=== PATIENT | female | born 1975 | race Hispanic/Latino ===

== ENCOUNTER 2018-08-15 22:58 | Observation (INO) | payer OTHER ==
[2018-08-16] MEDS ORDERED: FAMOTIDINE 20 MG/2 ML VIAL IV ONE (00:12)
[2018-08-16] MEDS ORDERED: NA CHLORIDE 0.9% 1,000 ML ONE (00:12)
[2018-08-16] MEDS ORDERED: ASPIRIN 81 MG CHEWABLE TABLET ONE (00:12)
[2018-08-16] MEDS ORDERED: ENOXAPARIN 80 MG/0.8 ML SQ ONE (00:12)
[2018-08-16 00:13] LABS: Absolute Monocytes 0.6 K/uL (0.1-1.3); Absolute Neutrophil 6.9 K/uL (1.8-8.0); Basophils % 0.4 % (0-1.3); Eosinophils % 2.5 % (0-4.4); Hematocrit 37.6 % (36.0-45.0); MPV 8.4 fL (7.6-11.3); Monocytes % 4.7 % (3.3-12.3)
[2018-08-16 00:16] LABS: Protime INR 0.92
--- NOTE | 2018-08-16 00:23 | ER ---
Nurse's Notes [facility] Name: Yumiko Reardon Age: 43 yrs Sex: Female : 1975 Arrival Date: 08/15/2018 Time: 23:03 Bed 18 Private MD: Tyron Farr Diagnosis: Chest pain, unspecified;Dyspnea;Essential (primary) hypertension;Hypokalemia Presentation: 08/15 23:15 Presenting complaint: Patient states: patient states: I AM HAVING THIS PAIN AND SOB FOR rv COUPLE OF MONTHS NOW. TODAY IT GOT WORSE. I AM ALSO HAVING NUMBNESS WITH MY HANDS. FEBRUARY WAST MY LAST APPOINTMENT WITH [facility]. Transition of care: patient was not received from another setting of care. Onset of symptoms was August 15, 2018 at 08:00. Risk Assessment: Do you want to hurt yourself or someone else? Patient reports no desire to harm self or others. Initial Sepsis Screen: Does the patient meet any 2 criteria? No. Patient's initial sepsis screen is negative. Does the patient have a suspected source of infection? No. Patient's initial sepsis screen is negative. Care prior to arrival: None. 23:15 Method Of Arrival: Ambulatory rv 23:15 Acuity: ARLEY 3 rv Triage Assessment: 08/16 01:43 General: Appears in no apparent distress. uncomfortable. Respiratory: Reports shortness rv of breath Onset: The symptoms/episode began/occurred. Respiratory: the patient has mild shortness of breath. Historical: - Allergies: 08/15 23:17 No Known Allergies; rv - Home Meds: 23:17 None [Active]; rv - PMHx: 23:17 Thyroid problem; rv - PSHx: 23:17 Tubal ligation; rv - Immunization history:: Adult Immunizations up to date, Flu vaccine is up to date. - Social history:: Smoking status: Patient uses tobacco products, denies chronic smoking, but will smoke occasionally. - Ebola Screening: : Patient negative for fever greater than or equal to 101.5 degrees Fahrenheit, and additional compatible Ebola Virus Disease symptoms Patient denies exposure to infectious person Patient denies travel to an Ebola-affected area in the 21 days before illness onset. - Family history:: not pertinent. Screenin:20 Abuse screen: Denies threats or abuse. Denies injuries from another. Nutritional rv screening: No deficits noted. Tuberculosis screening: No symptoms or risk factors identified. Fall Risk None identified. Assessment: 23:19 General: Appears in no apparent distress. comfortable, Behavior is calm, cooperative. rv Pain: Complains of pain in chest Pain does not radiate. Neuro: Level of Consciousness is awake, alert, obeys commands, Oriented to person, place, time, situation. Cardiovascular: Rhythm is regular. Respiratory: Airway is patent Respiratory effort is even, Breath sounds are clear bilaterally. GI: No signs and/or symptoms were reported involving the gastrointestinal system. : No signs and/or symptoms were reported regarding the genitourinary system. EENT: No signs and/or symptoms were reported regarding the EENT system. Derm: Skin is intact. Musculoskeletal: No signs and/or symptoms reported regarding the musculoskeletal system. Vital Signs: 23:18 Weight 86.18 kg (R); Height 4 ft. 11 in. (149.86 cm) (R); rv 23:21 BP 144 / 86; Pulse 67 MON; Resp 22 S; Pulse Ox 100% on R/A; rv 23:23 Temp 99.5(O); rv 08/16 00:00 BP 115 / 80; Pulse 66; Resp 17 S; Pulse Ox 97% on R/A; rv 00:30 BP 129 / 87; Pulse 66; Resp 19 S; Pulse Ox 99% on R/A; rv 01:00 BP 134 / 83; Pulse 71; Resp 18 S; Pulse Ox 100% on R/A; rv 01:15 BP 142 / 90; Pulse 64; Resp 18 S; Pulse Ox 99% on R/A; rv 08/15 23:18 Body Mass Index 38.37 (86.18 kg, 149.86 cm) rv ED Course: 08/15 23:03 Patient arrived in ED. es 23:04 Tyron Farr DO is Private Physician. es 23:16 Triage completed. rv 23:42 Dominik Liao MD is Attending Physician. lani 23:50 Inserted saline lock: 20 gauge in right forearm, using aseptic technique. Blood rv collected. 23:50 Initial lab(s) drawn, by al, sent to lab. First set of blood cultures drawn by al. rv 08/16 00:10 Second set of blood cultures drawn by me. rv 00:20 Nan Saleem MD is Hospitalizing Provider. lani 01:31 X-ray completed. Portable x-ray completed in exam room. Patient tolerated procedure kw well. 01:42 No provider procedures requiring assistance completed. Patient admitted, IV remains in rv place. intact. 01:42 Arm band placed on right wrist. rv 01:44 Patient has correct armband on for positive identification. Bed in low position. Call rv light in reach. Side rails up X 1. Adult w/ patient. Pulse ox on. NIBP on. Administered Medications: 00:05 Drug: Aspirin Chewable Tablet 162 mg Route: PO; rv 00:53 Follow up: Response: No adverse reaction rv 00:07 Drug: Lovenox 1 mg/kg Route: Sub-Q; Site: left lower abdomen; rv 00:53 Follow up: Response: No adverse reaction rv 00:10 Drug: NS 0.9% 1000 ml Route: IV; Rate: 125 ml/hr; Site: right forearm; rv 00:10 Drug: Pepcid 20 mg Route: IVP; Site: right forearm; rv 00:52 Follow up: Response: No adverse reaction rv 00:45 Drug: Potassium Effervescent Tablet 25 mEq Route: PO; rv 01:05 Follow up: Response: No adverse reaction rv Outcome: 00:22 Decision to Hospitalize by Provider. [facility] 01:43 Admitted to Tele accompanied by tech, via wheelchair, room 405, with chart, Report rv called to mana walsh 01:43 Condition: good 01:43 Instructed on the need for admit. 01:45 Patient left the ED. rv Signatures: Dominik Liao MD MD cha Salyer, Edna es Whitley, Kimberlee kw Vicente, Ronaldo, RN RN rv
--- NOTE | 2018-08-16 00:23 | EDPHYS ---
Physician Documentation [facility] Name: Yumiko Reardon Age: 43 yrs Sex: Female : 1975 Arrival Date: 08/15/2018 Time: 23:03 Bed 18 Private MD: Yordan [facility] ED Physician Dominik Liao HPI: 08/15 23:51 This 43 yrs old Female presents to ER via Ambulatory with complaints of lani Breathing Difficulty, Chest Pain. 23:51 The patient has shortness of breath with light activity. Onset: The symptoms/episode lani began/occurred 3 day(s) ago. The patient's shortness of breath has no apparent modifying factors. Associated signs and symptoms: The patient has no apparent associated signs or symptoms. The patient has not experienced similar symptoms in the past. Historical: - Allergies: 23:17 No Known Allergies; rv - Home Meds: 23:17 None [Active]; rv - PMHx: 23:17 Thyroid problem; rv - PSHx: 23:17 Tubal ligation; rv - Immunization history:: Adult Immunizations up to date, Flu vaccine is up to date. - Social history:: Smoking status: Patient uses tobacco products, denies chronic smoking, but will smoke occasionally. - Ebola Screening: : Patient negative for fever greater than or equal to 101.5 degrees Fahrenheit, and additional compatible Ebola Virus Disease symptoms Patient denies exposure to infectious person Patient denies travel to an Ebola-affected area in the 21 days before illness onset. - Family history:: not pertinent. ROS: 23:51 Constitutional: Negative for fever, chills, and weight loss, Eyes: Negative for injury, lani pain, redness, and discharge, ENT: Negative for injury, pain, and discharge, Neck: Negative for injury, pain, and swelling, Abdomen/GI: Negative for abdominal pain, nausea, vomiting, diarrhea, and constipation, Back: Negative for injury and pain, : Negative for injury, bleeding, discharge, and swelling, MS/Extremity: Negative for injury and deformity, Skin: Negative for injury, rash, and discoloration, Neuro: Negative for headache, weakness, numbness, tingling, and seizure, Psych: Negative for depression, anxiety, suicide ideation, homicidal ideation, and hallucinations, Allergy/Immunology: Negative for hives, rash, and allergies, Hematologic/Lymphatic: Negative for swollen nodes, abnormal bleeding, and unusual bruising. 23:51 Cardiovascular: Positive for chest pain. 23:51 Respiratory: Positive for shortness of breath, at rest. Exam: 23:51 Constitutional: This is a well developed, well nourished patient who is awake, alert, lani and in no acute distress. Head/Face: Normocephalic, atraumatic. Eyes: Pupils equal round and reactive to light, extra-ocular motions intact. Lids and lashes normal. Conjunctiva and sclera are non-icteric and not injected. Cornea within normal limits. Periorbital areas with no swelling, redness, or edema. ENT: Nares patent. No nasal discharge, no septal abnormalities noted. Tympanic membranes are normal and external auditory canals are clear. Oropharynx with no redness, swelling, or masses, exudates, or evidence of obstruction, uvula midline. Mucous membranes moist. Neck: Trachea midline, no thyromegaly or masses palpated, and no cervical lymphadenopathy. Supple, full range of motion without nuchal rigidity, or vertebral point tenderness. No Meningismus. Chest/axilla: Normal chest wall appearance and motion. Nontender with no deformity. No lesions are appreciated. Cardiovascular: Regular rate and rhythm with a normal S1 and S2. No gallops, murmurs, or rubs. Normal PMI, no JVD. No pulse deficits. Respiratory: Lungs have equal breath sounds bilaterally, clear to auscultation and percussion. No rales, rhonchi or wheezes noted. No increased work of breathing, no retractions or nasal flaring. Abdomen/GI: Soft, non-tender, with normal bowel sounds. No distension or tympany. No guarding or rebound. No evidence of tenderness throughout. Back: No spinal tenderness. No costovertebral tenderness. Full range of motion. Female : Normal external genitalia. Skin: Warm, dry with normal turgor. Normal color with no rashes, no lesions, and no evidence of cellulitis. MS/ Extremity: Pulses equal, no cyanosis. Neurovascular intact. Full, normal range of motion. Neuro: Awake and alert, GCS 15, oriented to person, place, time, and situation. Cranial nerves II-XII grossly intact. Motor strength 5/5 in all extremities. Sensory grossly intact. Cerebellar exam normal. Normal gait. Psych: Awake, alert, with orientation to person, place and time. Behavior, mood, and affect are within normal limits. 23:51 Musculoskeletal/extremity: DVT Exam: No signs of deep vein thrombosis. no pain, no swelling, no tenderness, negative Homans' sign noted on exam, no appreciated bluish discoloration, no erythema, no increased warmth. Vital Signs: 23:18 Weight 86.18 kg (R); Height 4 ft. 11 in. (149.86 cm) (R); rv 23:21 BP 144 / 86; Pulse 67 MON; Resp 22 S; Pulse Ox 100% on R/A; rv 23:23 Temp 99.5(O); rv 08/16 00:00 BP 115 / 80; Pulse 66; Resp 17 S; Pulse Ox 97% on R/A; rv 00:30 BP 129 / 87; Pulse 66; Resp 19 S; Pulse Ox 99% on R/A; rv 01:00 BP 134 / 83; Pulse 71; Resp 18 S; Pulse Ox 100% on R/A; rv 01:15 BP 142 / 90; Pulse 64; Resp 18 S; Pulse Ox 99% on R/A; rv 08/15 23:18 Body Mass Index 38.37 (86.18 kg, 149.86 cm) rv MDM: 08/15 23:42 Patient medically screened. [facility] 23:52 Data reviewed: vital signs, nurses notes, lab test result(s), EKG, radiologic studies, [facility] plain films. 08/16 00:17 Order name: Basic Metabolic Panel; Complete Time: 00:37 [facility] 08/16 00:17 Order name: Liver (Hepatic) Function; Complete Time: 00:37 [facility] 08/15 23:51 Order name: XRAY Chest (1 view) [facility] 08/15 23:51 Order name: Cardiac monitoring; Complete Time: 00:16 [facility] 08/16 00:17 Order name: Troponin (Emerg Dept Use Only); Complete Time: 00:37 [facility] 08/16 00:17 Order name: NT PRO-BNP; Complete Time: 00:37 [facility] 08/16 00:17 Order name: Magnesium; Complete Time: 00:37 [facility] 08/16 00:17 Order name: CBC with Automated Diff; Complete Time: 00:18 [facility] 08/16 00:17 Order name: Protime (+INR) [facility] 08/16 00:17 Order name: D-Dimer [facility] 08/16 00:17 Order name: Blood Culture [facility] 08/16 00:17 Order name: Blood Culture [facility] 08/15 23:51 Order name: EKG - Nurse/Tech; Complete Time: 00:16 [facility] 08/15 23:51 Order name: IV Saline Lock; Complete Time: 00:16 [facility] 08/15 23:51 Order name: Labs collected and sent; Complete Time: 00:16 [facility] 08/15 23:51 Order name: O2 Per Protocol; Complete Time: 00:16 [facility] 08/15 23:51 Order name: O2 Sat Monitoring; Complete Time: 00:16 [facility] 08/15 23:51 Order name: Urine Dipstick-Ancillary (obtain specimen); Complete Time: 00:16 [facility] Administered Medications: 08/16 00:05 Drug: Aspirin Chewable Tablet 162 mg Route: PO; rv 00:53 Follow up: Response: No adverse reaction rv 00:07 Drug: Lovenox 1 mg/kg Route: Sub-Q; Site: left lower abdomen; rv 00:53 Follow up: Response: No adverse reaction rv 00:10 Drug: NS 0.9% 1000 ml Route: IV; Rate: 125 ml/hr; Site: right forearm; rv 00:10 Drug: Pepcid 20 mg Route: IVP; Site: right forearm; rv 00:52 Follow up: Response: No adverse reaction rv 00:45 Drug: Potassium Effervescent Tablet 25 mEq Route: PO; rv 01:05 Follow up: Response: No adverse reaction rv Disposition: 08/16/18 00:22 Hospitalization ordered by Nan Saleem for Observation. Preliminary diagnosis are Chest pain, unspecified, Dyspnea, Essential (primary) hypertension, Hypokalemia. - Bed requested for Telemetry/MedSurg (observation). - Status is Observation. rv - Condition is Fair. - Problem is new. - Symptoms have improved. UTI on Admission? No Signatures: Dispatcher [employer] EDDominik Cheng MD MD cha Vicente, Ronaldo RN RN rv Corrections: (The following items were deleted from the chart) 00:38 00:22 Hospitalization Ordered by Nan Saleem MD for Observation. Preliminary [facility] diagnosis is Chest pain, unspecified; Dyspnea; Essential (primary) hypertension. Bed requested for Telemetry/MedSurg (observation). Status is Observation. Condition is Fair. Problem is new. Symptoms have improved. UTI on Admission? No. lani 01:45 00:38 08/16/2018 00:22 Hospitalization Ordered by Nan Saleem MD for Observation. rv Preliminary diagnosis is Chest pain, unspecified; Dyspnea; Essential (primary) hypertension; Hypokalemia. Bed requested for Telemetry/MedSurg (observation). Status is Observation. Condition is Fair. Problem is new. Symptoms have improved. UTI on Admission? No. lani
[2018-08-16 00:30] LABS: ALT/SGPT 62 U/L (12-78); AST/SGOT 34 U/L (15-37); Albumin 3.5 g/dL (3.4-5.0); Alkaline Phosphatase 76 U/L (45-117); BUN Blood Urea Nitrogen 17 mg/dL (7-18); Bicarbonate 24 mmol/L (21-32); Bilirubin Direct 0.1 mg/dL (0-0.2); Bilirubin Total 0.3 mg/dL (0.2-1.0); Glucose Level 130 mg/dL (74-106); Magnesium 1.9 mg/dL (1.8-2.4); NT PRO-BNP 49 pg/mL (<125); Potassium 3.4 mmol/L (3.5-5.1); Protein, Total 7.4 g/dL (6.4-8.2); Sodium Level 139 mmol/L (136-145); Troponin (Emerg Dept Use Only) < 0.02 ng/mL (0.0-0.045)
[2018-08-16] MEDS ORDERED: POTASSIUM 25 MEQ EFFERV TAB ONE (00:51)
[2018-08-16] MEDS ORDERED: ALBUTEROL 2.5 MG/3 ML NEB SOL NEB PRN (02:02)
[2018-08-16] MEDS ORDERED: IPRATROPIUM BROM 0.5MG/2.5ML NEB PRN (02:02)
[2018-08-16] MEDS ORDERED: ACETAMINOPHEN 500 MG TAB PO PRN (02:02)
[2018-08-16] MEDS ORDERED: ALPRAZOLAM 0.25 MG TABLET PO PRN (02:02)
[2018-08-16] MEDS ORDERED: ONDANSETRON 4 MG/2 ML VIAL IV PRN (02:02)
[2018-08-16] MEDS ORDERED: MORPHINE 2 MG/ML SYR IV PRN (02:02)
[2018-08-16 02:28] VITALS: O2SAT 99
[2018-08-16 02:56] VITALS: BMI 39.6
[2018-08-16] MEDS ORDERED: NA CHLORIDE 0.9% 1,000 ML IV SCH (03:00)
[2018-08-16 04:39] LABS: HDL Cholesterol 36 mg/dL (40-60); LDL Cholesterol, Calculated ND (<130); Troponin I < 0.02 ng/mL (0.0-0.045)
[2018-08-16 04:51] LABS: LDL, Direct 102 mg/dL (100-129)
--- NOTE | 2018-08-16 06:36 | RAD REPORT ---
EXAM DESCRIPTION: RAD - Chest Single View - 08/16/2018 1:32 am CLINICAL HISTORY: Chest pain, shortness of breath COMPARISON: November 2013 TECHNIQUE: [facility] portable chest image was obtained 0129 hours . FINDINGS: Lungs are clear. Heart and vasculature are normal. No measurable pleural effusion and no p neumothorax. No acute bony abnormality seen. No acute aortic findings suspected. IMPRESSION: No acute cardiopulmonary process. No significant interval change.
[2018-08-16] MEDS ORDERED: HYDROCORTISONE SUC 100 MG INJ IV ONE (07:05)
--- NOTE | 2018-08-16 07:10 | P.HP ---
Certification for Inpatient Patient admitted to: Observation With expected LOS: <2 Midnights Patient will require the following post-hospital care: None Practitioner: I am a practitioner with admitting privileges, knowledge of patient current condition, hospital course, and medical plan of care. Services: Services provided to patient in accordance with Admission requirements found in Title 42 Section 412.3 of the Code of Federal Regulations Patient History Date of Service: 08/15/18 Reason for admission: Chest pain rule out acute coronary syndrome History of Present Illness: Patient is a 43-year-old female came to the hospital with pain in her chest. This been going on and off the last 24 hr. Was mainly in the sternal region. No radiation. Patient also has some numbness in her hands and her feet. She describes it as numbness and tingling. She mainly feels it in her left foot as well. She came into the hospital for further workup. She only smokes 1 cigarette daily. She denies any significant family history. At this time she will be admitted to the hospital for further workup. Allergies No Known Drug Allergies Allergy (Verified 08/16/18 02:42) Unknown NKDA Allergy (Uncoded 12/11/13 14:57) Unknown Home Medications: Ergocalciferol (Vitamin D2) [Vitamin D2] 2,000 unit PO DAILY 08/16/18 - Past Medical/Surgical History Has patient received pneumonia vaccine in the past: No Diabetic: No -: hypothyroid -: anemia -: recurrent UTI -: recurrent ear inf. -: Bilateral tubal ligation -: ear tubes x2 - Family History Mother Medical History: Lung disease - Social History Smoking Status: Current some day smoker Alcohol use: Yes CD- Drugs: No Caffeine use: Yes Place of Residence: Home Review of Systems 10-point ROS is otherwise unremarkable Physical Examination - Vital Signs Temperature: 97.3 F Blood Pressure: 148/85 Pulse: 61 Respirations: 18 Pulse Ox (%): 99 - Physical Exam General: Alert, In no apparent distress, Oriented x3 HEENT: Atraumatic, PERRLA, Mucous membr. moist/pink, EOMI, Sclerae nonicteric Neck: Supple, 2+ carotid pulse no bruit, No LAD, Without JVD or thyroid abnormality Respiratory: Clear to auscultation bilaterally, Normal air movement Cardiovascular: Regular rate/rhythm, Normal S1 S2, No murmurs Gastrointestinal: Normal bowel sounds, Soft and benign, Non-distended, No tenderness, No rebound, No guarding Musculoskeletal: No clubbing, No swelling, No tenderness Integumentary: No rashes Neurological: Normal gait, Normal speech, Normal strength at 5/5 x4 extr, Normal tone, Sensation intact, Cranial nerves 3-12 intact, Normal affect, Abnormal sensation Lymphatics: No axilla or inguinal lymphadenopathy - Studies Laboratory Data (last 24 hrs) 08/15/18 23:50: PT 10.9, INR 0.92 08/15/18 23:50: WBC 11.8 H, Hgb 12.8, Hct 37.6, Plt Count 300 08/15/18 23:50: Sodium 139, Potassium 3.4 L, BUN 17, Creatinine 0.92, Glucose 130 H, Magnesium 1.9, Total Bilirubin 0.3, AST 34, ALT 62, Alkaline Phosphatase 76 Assessment & Plan - Problems (Diagnosis) (1) Chest pain, rule out acute myocardial infarction Current Visit: Yes Status: Acute (2) History of tobacco use Current Visit: Yes Status: Acute (3) Anemia Current Visit: Yes Status: Acute (4) Musculoskeletal pain Current Visit: Yes Status: Acute - Plan 1. Serial troponins and EKG 2. Cardiology consultation 3. Echocardiogram 4. Anti-platelet therapy, beta-oliver, statin, and O2 as needed 5. IV morphine for pain 6. CT of the brain 7. Appears to be musculoskeletal will give anti-inflammatory if serial troponins are negative 8. GI and DVT prophylaxis Discharge Plan: Home Plan to discharge in: 24 Hours - Advance Directives Does patient have a Living Will: No Does patient have a Durable POA for Healthcare: No - Code Status/Comfort Care Code Status Assessed: Yes Code Status: Full Code Critical Care: No Time Spent Managing PTS Care (In Minutes): 50
[2018-08-16] MEDS ORDERED: MORPHINE 4 MG/ML SYR IV PRN (07:19)
[2018-08-16 07:23] LABS: Urine Blood NEGATIVE (NEG); Urine Glucose NEGATIVE (NEG); Urine Protein TRACE (NEG)
--- NOTE | 2018-08-16 08:15 | EKG ---
Test Date: 2018-08-15 Test Time: 23:14:09 Helpdesk Manager: ASHLY MEASUREMENT RESULTS: Intervals: Rate: 73 WI: 162 QRSD: 100 QT: 398 QTc: 438 [place]: P: 45 WI: 162 QRS: -11 T: 28 INTERPRETIVE STATEMENTS: Normal sinus rhythm Normal ECG Compared to ECG 12/11/2013 11:04:38 Sinus bradycardia no longer present Sinus arrhythmia no longer present Electronically Signed On 08-16-18 08:09:02 CIVIL CADD TECHNICIAN by Glen Simms
[2018-08-16] MEDS ORDERED: ASPIRIN EC 81 MG TAB PO SCH (09:00)
[2018-08-16] MEDS ORDERED: ENOXAPARIN 40 MG/0.4 ML SQ SCH (09:00)
[2018-08-16] MEDS ORDERED: METOPROLOL TAR 50 MG TAB PO SCH (09:00)
--- NOTE | 2018-08-16 11:13 | RAD REPORT ---
EXAM DESCRIPTION: CT - Head Brain Wo Cont - 08/16/2018 11:02 am CLINICAL HISTORY: Left-sided numbness of the arms and legs COMPARISON: None. TECHNIQUE: Axial 5 mm thick images of the head were obtained without IV contrast. All CT scans are performed using dose optimization technique as appropriate and may include automated exposure control or mA/KV adjustment according to patient size. FINDINGS: No intracranial hemorrhage, mass, edema or shift of mid-line structures. No acute cortical based infarction identifiable. No cortical edema or sulcal effacement seen. Patient has no measurabl e atrophy or chronic ischemic change. No abnormal extra-axial fluid collections. Ventricles are jhon l. Mastoid air cells and visualized portions of the paranasal sinuses are clear. No acute bony findings. IMPRESSION: Negative non-contrast CT head examination. Continued concerns for CVA or acute neurologic process can be evaluated with MR imaging.
--- NOTE | 2018-08-16 11:27 | EKG ---
Test Date: 2018-08-16 Test Time: 07:42:00 Human Resources Clerk: ROBBY MEASUREMENT RESULTS: Intervals: Rate: 50 SC: 152 QRSD: 88 QT: 454 QTc: 413 [place]: P: 43 SC: 152 QRS: 8 T: 37 INTERPRETIVE STATEMENTS: Sinus bradycardia Otherwise normal ECG Compared to ECG 08/15/2018 23:14:09 Sinus rhythm no longer present Electronically Signed On 08-16-18 11:26:00 DECORATING KILN OPERATOR by Glen Simms
--- NOTE | 2018-08-16 11:57 | P.SSS ---
Patient History Date of Service: 08/16/18 Reason for admission: Chest pain rule out acute coronary syndrome Allergies No Known Drug Allergies Allergy (Verified 08/16/18 02:42) Unknown NKDA Allergy (Uncoded 12/11/13 14:57) Unknown Home Medications: Ergocalciferol (Vitamin D2) [Vitamin D2] 2,000 unit PO DAILY 08/16/18 - Past Medical/Surgical History Has patient received pneumonia vaccine in the past: No Diabetic: No -: hypothyroid -: anemia -: recurrent UTI -: recurrent ear inf. -: Bilateral tubal ligation -: ear tubes x2 - Family History Mother -: Lung disease - Social History Smoking Status: Current some day smoker Alcohol use: Yes CD- Drugs: No Caffeine use: Yes Place of Residence: Home Review of Systems 10-point ROS is otherwise unremarkable Physical Examination - Vital Signs Temperature: 98.4 F Blood Pressure: 137/87 Pulse: 68 Respirations: 16 Pulse Ox (%): 99 - Physical Exam General: Alert, In no apparent distress HEENT: Atraumatic, PERRLA, Mucous membr. moist/pink, EOMI, Sclerae nonicteric Neck: Supple, 2+ carotid pulse no bruit, No LAD, Without JVD or thyroid abnormality Respiratory: Clear to auscultation bilaterally, Normal air movement Cardiovascular: Regular rate/rhythm, Normal S1 S2 Gastrointestinal: Normal bowel sounds, No tenderness Musculoskeletal: No tenderness Integumentary: No rashes Neurological: Normal gait, Normal speech, Normal strength at 5/5 x4 extr, Normal tone, Normal affect Lymphatics: No axilla or inguinal lymphadenopathy - Studies Laboratory Data (last 24 hrs) 08/15/18 23:51: PT Cancelled, INR Cancelled 08/15/18 23:51: WBC Cancelled, Hgb Cancelled, Hct Cancelled, Plt Count Cancelled 08/15/18 23:51: Sodium Cancelled, Potassium Cancelled, BUN Cancelled, Creatinine Cancelled, Glucose Cancelled, Magnesium Cancelled, Total Bilirubin Cancelled, AST Cancelled, ALT Cancelled, Alkaline Phosphatase Cancelled 08/15/18 23:50: PT 10.9, INR 0.92 08/15/18 23:50: WBC 11.8 H, Hgb 12.8, Hct 37.6, Plt Count 300 08/15/18 23:50: Sodium 139, Potassium 3.4 L, BUN 17, Creatinine 0.92, Glucose 130 H, Magnesium 1.9, Total Bilirubin 0.3, AST 34, ALT 62, Alkaline Phosphatase 76 - Diagnosis (Problem(s)) (1) Chest pain, rule out acute myocardial infarction Current Visit: Yes Status: Acute (2) History of tobacco use Current Visit: Yes Status: Chronic (3) Musculoskeletal pain Current Visit: Yes Status: Chronic Treatment Summary: Overall during the hospital stay patient remained stable Patient was initially admitted to the hospital for chest pain ACS rule out. Troponin x2 was negative. EKG was within normal limits. Patient had an echocardiogram done here in the hospital which was within normal limits. Patient's chest pain resolved most likely secondary to musculoskeletal pain as patient was heavy objects at work. Patient asked to follow up with primary care provider in about 1-2 days post discharge. Patient also asked to continue doing stretching exercise in morning to avoid having the pain. Patient and son understand thus discharged home. - Disposition Disposition: ROUTINE DISCHARGE Condition: GOOD Diet: Regular Activity: Ad michael
[2018-08-16 16:09] VITALS: BP 125/74; TEMP 97.8
--- NOTE | 2018-08-17 14:39 | ECHO ---
HEIGHT: 4 ft 11 in WEIGHT: 196 lb 9.6 oz DATE OF STUDY: 08/16/[address]: 2-DIMENSIONAL: YES M.MODE: YES DOPPLER: YES COLOR FLOW: YES TDS: YES PORTABLE: DEFINITY: BUBBLE STUDY: DIAGNOSIS: CHEST PAIN, RULE OUT ACS. CARDIAC HISTORY: CATHERIZATION: NO SURGERY: NO PROSTHETIC VALVE: NO PACEMAKER: NO MEASUREMENTS (cm) DIASTOLIC (NORMALS) SYSTOLIC (NORMALS) IVSd 1.0 (0.6-1.2) LA Diam 3.2 (1.9-4.0) LVEF 80% LVIDd 4.4 (3.5-5.7) LVIDs 2.3 (2.0-3.5) %FS 49% LVPWd 1.0 (0.6-1.2) Ao Diam 2.5 (2.0-3.7) 2 DIMENSIONAL ASSESSMENT: RIGHT ATRIUM: NORMAL LEFT ATRIUM: NORMAL RIGHT VENTRICLE: NORMAL LEFT VENTRICLE: NORMAL TRICUSPID VALVE: NORMAL MITRAL VALVE: NORMAL PULMONIC VALVE: NORMAL AORTIC VALVE: NORMAL PERICARDIAL EFFUSION: NONE AORTIC ROOT: NORMAL LEFT VENTRICULAR WALL MOTION: NORMAL DOPPLER/COLOR FLOW: NORMAL COMMENTS: NORMAL TWO DIMENSIONAL ECHOCARDIOGRAM WITH DOPPLER. NO WALL MOTION ABNORMALITY. NO EFFUSION. TECHNOLOGIST: CHRISTINE NEELY
== END 2018-08-16 16:08 | disposition home or self-care (01) ==
LOC: ER 22:58 → ERHOLD 08-16 00:22 → 4TH 08-16 01:42
PROVIDERS: ADMIT Hospitalist; ATTEND Hospitalist
DX: R07.89 Other chest pain (principal); E03.9 Hypothyroidism, unspecified; F17.210 Nicotine dependence, cigarettes, uncomplicated
CPT/HCPCS: 36415; 70450; 71045; 80048; 80061; 80076; 81003; 81025; 83735; 83880; 84484; 85025; 85379; 85610; 87040; 87086; 87088; 93005; 93306; G0378; J1650; J1720; J7030

== ENCOUNTER 2022-08-29 10:06 | Emergency (ER) | payer OTHER ==
[2022-08-29] MEDS ORDERED: ONDANSETRON 4 MG/2 ML VIAL ONE (10:55)
[2022-08-29] MEDS ORDERED: MORPHINE 4 MG/ML SYR ONE (10:55)
[2022-08-29] MEDS ORDERED: NA CHLORIDE 0.9% 1,000 ML ONE (10:55)
[2022-08-29 11:04] LABS: Absolute Lymphocytes (CBC) 2.3 K/uL (0.7-4.9); Hematocrit 42.7 % (36.0-45.0); Lymphocytes % 18.6 % (15.3-44.8); MCV 79.7 fL (80-100); MPV 8.2 fL (7.6-11.3); RBC Red Blood Cell Count 5.36 M/uL (3.86-4.86)
[2022-08-29 11:09] LABS: Urine Blood Negative (Negative); Urine Glucose Negative (Negative); Urine Protein 2+ (Negative); Urine pH 5.5 (5.0-7.0)
[2022-08-29 11:15] LABS: Urine Bacteria None Seen /HPF (<20); Urine RBC None Seen /HPF (None Seen)
[2022-08-29 11:17] LABS: Albumin 3.6 g/dL (3.4-5.0); Bilirubin Total 0.2 mg/dL (0.2-1.0); Potassium 4.5 mmol/L (3.5-5.1); Protein, Total 8.2 g/dL (6.4-8.2)
--- NOTE | 2022-08-29 11:51 | RAD REPORT ---
EXAM DESCRIPTION: CTAbdomen Pelvis W Contrast - 08/29/2022 11:40 am CLINICAL HISTORY: Abdominal pain. L flank and LUQ pain COMPARISON: CT ABD PELVIS W CONTRAST dated 07/28/2008 TECHNIQUE: Biphasic CT imaging of the abdomen and pelvis was performed with 100 ml non-ionic IV cont rast. All CT scans are performed using dose optimization technique as appropriate and may include automated exposure control or mA/KV adjustment according to patient size. FINDINGS: The lung bases are clear. The liver demonstrates diffuse fatty infiltration. Spleen, pancreas, adrenal glands and left kidney a re within normal limits. Nonvisualized right kidney. No bowel obstruction, free air, free fluid or abscess. Small fat containing umbilical hernia. The nai endix is normal. No evidence of significant lymphadenopathy. No suspicious bony findings. IMPRESSION: Mild fatty liver. Normal left kidney. Nonvisualized right kidney.
--- NOTE | 2022-08-29 12:19 | EDPHYS ---
Physician Documentation [facility] Name: Yumiko Reardon Age: 47 yrs Sex: Female : 1975 Arrival Date: 08/29/2022 Time: 10:09 Bed 19 Private MD: ED Physician Tawanda Jeff HPI: 08/29 10:30 This 47 yrs old Female presents to ER via Ambulatory with complaints of Flank jh7 Pain. 10:30 The patient complains of pain in the left low back. The pain radiates to the LUQ. jh7 Onset: The symptoms/episode began/occurred 3 day(s) ago. Modifying factors: The symptoms are alleviated by OTC meds. Associated signs and symptoms: Pertinent positives: nausea, Pertinent negatives: diarrhea, dysuria, fever, hematuria, vomiting. Patient reports that she thought that the pain was due to gas or constipation. Last BM this morning. 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 Patient of Dr. Coronado.. 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 - Social history:: Smoking status: Patient denies any tobacco usage or history of. Patient uses alcohol, weekly. ROS: 10:30 Constitutional: Negative for fever, chills, and weight loss, Eyes: Negative for injury, jh7 pain, redness, and discharge, ENT: Negative for injury, pain, and discharge, Cardiovascular: Negative for chest pain, palpitations, and edema, Respiratory: Negative for shortness of breath, cough, wheezing, and pleuritic chest pain, MS/Extremity: Negative for injury and deformity, Skin: Negative for injury, rash, and discoloration, Neuro: Negative for headache, weakness, numbness, tingling, and seizure. 10:30 Abdomen/GI: Positive for abdominal cramps, flatulence, Negative for vomiting, diarrhea, black/tarry stool, rectal pain, rectal bleeding. 10:30 Back: Positive for flank pain, on the left, Negative for injury or acute deformity. 10:30 All other systems are negative. Exam: 10:30 Constitutional: This is a well developed, well nourished patient who is awake, alert, jh7 and in no acute distress. Head/Face: Normocephalic, atraumatic. Eyes: Pupils equal round and reactive to light, extra-ocular motions intact. Lids and lashes normal. Conjunctiva and sclera are non-icteric and not injected. Cornea within normal limits. Periorbital areas with no swelling, redness, or edema. Cardiovascular: Regular rate and rhythm with a normal S1 and S2. No gallops, murmurs, or rubs. Normal PMI, no JVD. No pulse deficits. Respiratory: Lungs have equal breath sounds bilaterally, clear to auscultation and percussion. No rales, rhonchi or wheezes noted. No increased work of breathing, no retractions or nasal flaring. Skin: Warm, dry with normal turgor. Normal color with no rashes, no lesions, and no evidence of cellulitis. MS/ Extremity: Pulses equal, no cyanosis. Neurovascular intact. Full, normal range of motion. Neuro: Awake and alert, GCS 15, oriented to person, place, time, and situation. Motor strength 5/5 in all extremities. Sensory grossly intact. Normal gait. 10:30 Abdomen/GI: Inspection: abdomen appears normal, Bowel sounds: normal, Palpation: soft, mild abdominal tenderness, in the left upper quadrant. 10:30 Back: 10:30 : CVA tenderness, on the left. Vital Signs: 10:34 BP 163 / 96; Pulse 68; Resp 19; Temp 98.5; Pulse Ox 100% ; Weight 88.45 kg; Height 4 ap3 ft. 11 in. (149.86 cm); Pain 10/10; 11:50 BP 175 / 96; Pulse 59; Resp 18; Pulse Ox 100% on R/A; Pain 5/10; ld1 10:34 Body Mass Index 39.38 (88.45 kg, 149.86 cm) ap3 MDM: 10:10 Patient medically screened. 7 12:26 Differential diagnosis: nephrolithiasis, pyelonephritis, UTI, diverticulitis, jh7 pancreatitis. Data reviewed: vital signs, nurses notes, lab test result(s), radiologic studies, CT scan. I considered the following discharge prescriptions or medication management in the emergency department Medications were administered in the Emergency Department. See MAR. Historians other than the Patient: Spouse/Significant Other: . Counseling: I had a detailed discussion with the patient and/or guardian regarding: the historical points, exam findings, and any diagnostic results supporting the discharge/admit diagnosis, to return to the emergency department if symptoms worsen or persist or if there are any questions or concerns that arise at home. Response to treatment: the patient's symptoms have markedly improved after treatment. 08/29 10:31 Order name: CBC with Diff; Complete Time: 11: [facility] 08/29 10:31 Order name: CMP; Complete Time: : [facility] 08/29 10:31 Order name: Lipase; Complete Time: [facility] 08/29 10:31 Order name: Urine Microscopic Only; Complete Time: 11: [facility] 08/29 11:09 Order name: Urine --Ancillary (enter results); Complete Time: 11: bd 08/29 11:09 Order name: Urine Dipstick-Ancillary; Complete Time: 11: [facility] 08/29 10:31 Order name: CT Abd/Pelvis - IV Contrast Only; Complete Time: 12:03 [facility] 08/29 10:31 Order name: IV Saline Lock; Complete Time: 10:53 [facility] 08/29 10:31 Order name: Labs collected and sent; Complete Time: 10:53 [facility] 08/29 10:31 Order name: Urine Dipstick-Ancillary (obtain specimen); Complete Time: 11: [facility] Administered Medications: 11:09 Drug: NS 0.9% 1000 ml Route: IV; Rate: 1 bolus; Site: right hand; ld1 12:38 Follow up: Response: No adverse reaction; IV Status: Completed infusion; IV Intake: ld1 1000ml 11:09 Drug: Zofran (Ondansetron) 4 mg Route: IVP; Site: right hand; ld1 12:38 Follow up: Response: No adverse reaction ld1 11:09 Drug: morphine 4 mg Route: IVP; Infused Over: 4 mins; Site: right hand; ld1 12:38 Follow up: Response: No adverse reaction ld1 12:37 Drug: GI Cocktail without - (Maalox Suspension 30 ml, Lidocaine Liquid 2 % 15 ld1 ml) Route: PO; 12:51 Follow up: Response: No adverse reaction ld1 12:38 Drug: Ketorolac 15 mg Route: IVP; Site: right wrist; ld1 12:51 Follow up: Response: No adverse reaction ld1 Disposition: 16:23 Co-signature as Attending Physician, Tawanda Jeff MD. rn Disposition Summary: 08/29/22 12:19 Discharge Ordered Location: Home [facility] Problem: new jh7 Symptoms: have improved jh7 Condition: Stable jh7 Diagnosis - Upper abdominal pain, unspecified jh7 Followup: [facility] - With: Private Physician - When: 2 - 3 days - Reason: Recheck today's complaints Discharge Instructions: - Discharge Summary Sheet jh7 - Abdominal Pain, Adult jh7 Forms: - Medication Reconciliation Form 7 - Thank You Letter 7 Prescriptions: - Nexium 20 mg Oral Capsule - take 1 capsule by ORAL route once daily; 20 capsule; Refills: 0, Product jh7 Selection Permitted Signatures: Dispatcher [employer] Tawanda Celestin MD MD rn Prokisch, Amanda, RN RN ap3 Yenifer James RN RN ld1 Karolina Wolf, TRANSPLANT IMMUNOLOGIST TRANSPLANT IMMUNOLOGIST [facility]
--- NOTE | 2022-08-29 12:19 | ER ---
Nurse's Notes [facility] Name: Yumiko Reardon Age: 47 yrs Sex: Female : 1975 Arrival Date: 08/29/2022 Time: 10:09 Bed 19 Private MD: Diagnosis: Upper abdominal pain, unspecified Presentation: 08/29 10:34 Chief complaint: Patient states: she started having left flank pain last night, that ap3 has gotten worse this morning. patient reports pain 1010. patient reports nausea, denies vomiting. Coronavirus screen: At this time, the client does not indicate any symptoms associated with coronavirus-19. Ebola Screen: No symptoms or risks identified at this time. Initial Sepsis Screen: Does the patient meet any 2 criteria? No. Patient's initial sepsis screen is negative. Does the patient have a suspected source of infection? No. Patient's initial sepsis screen is negative. Risk Assessment: Do you want to hurt yourself or someone else? Patient reports no desire to harm self or others. Onset of symptoms was August 28, 2022. 10:34 Method Of Arrival: Ambulatory ap3 10:34 Acuity: ARLEY 3 ap3 Triage Assessment: 10:35 General: Appears uncomfortable, Behavior is calm, cooperative. Pain: Complains of pain ap3 in left flank Pain currently is 10 out of 10 on a pain scale. Neuro: Level of Consciousness is awake, alert, obeys commands, Oriented to person, place, time, situation, Gait is steady, Speech is normal. Cardiovascular: Patient's skin is warm and dry. Respiratory: Airway is patent Respiratory effort is even, unlabored, Respiratory pattern is regular, symmetrical. 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 - Social history:: Smoking status: Patient denies any tobacco usage or history of. Patient uses alcohol, weekly. Screenin:36 Abuse screen: Denies threats or abuse. Nutritional screening: No deficits noted. ap3 Tuberculosis screening: No symptoms or risk factors identified. 10:54 [facility] ED Fall Risk Assessment (Adult) History of falling in the last 3 months, ld1 including since admission No falls in past 3 months (0 pts). Assessment: 10:49 General: Appears in no apparent distress. comfortable, Behavior is calm, cooperative, ld1 appropriate for age. Pain: Complains of pain in left low back Pain does not radiate. Pain currently is 8 out of 10 on a pain scale. Quality of pain is described as throbbing, Pain began 1 day ago. Is continuous. Neuro: Level of Consciousness is awake, alert, obeys commands, Oriented to person, place, time, situation. Cardiovascular: Capillary refill < 3 seconds Patient's skin is warm and dry. Rhythm is sinus rhythm. Respiratory: Airway is patent Respiratory effort is even, unlabored. GI: Abdomen is flat, non-distended. : Reports pain in left flank(s). EENT: No signs and/or symptoms were reported regarding the EENT system. Derm: No signs and/or symptoms reported regarding the dermatologic system. Musculoskeletal: No signs and/or symptoms reported regarding the musculoskeletal system. 11:44 Reassessment: Patient appears in no apparent distress at this time. Patient and/or ld1 family updated on plan of care and expected duration. Pain level reassessed. Patient states symptoms have improved. 11:50 Reassessment: Pt reports pain level has decreased to a 5. Feeling better at this time. ld1 Vital Signs: 10:34 BP 163 / 96; Pulse 68; Resp 19; Temp 98.5; Pulse Ox 100% ; Weight 88.45 kg; Height 4 ap3 ft. 11 in. (149.86 cm); Pain 10/10; 11:50 BP 175 / 96; Pulse 59; Resp 18; Pulse Ox 100% on R/A; Pain 5/10; ld1 10:34 Body Mass Index 39.38 (88.45 kg, 149.86 cm) ap3 ED Course: 10:09 Patient arrived in ED. as 10:10 Karolina Wolf FNP is PHCP. jh7 10:10 Tawanda Jeff MD is Attending Physician. jh7 10:35 Triage completed. ap3 10:36 Arm band placed on left wrist. ap3 10:47 Dibbern, Yenifer, RN is Primary Nurse. ld1 10:53 CBC with Diff Sent. em1 10:53 CMP Sent. em1 10:53 Lipase Sent. em1 10:53 Initial lab(s) drawn, by me, sent to lab. Inserted saline lock: 20 gauge in right em1 wrist, using aseptic technique. Blood collected. 10:54 Patient has correct armband on for positive identification. Placed in gown. Bed in low ld1 position. Call light in reach. Side rails up X2. potline monitor on. Pulse ox on. NIBP on. Door closed. Noise minimized. Warm blanket given. 10:54 No provider procedures requiring assistance completed. ld1 11:42 CT Abd/Pelvis - IV Contrast Only In Process Unspecified. EDMS 12:51 IV discontinued, intact, bleeding controlled, No redness/swelling at site. ld1 Administered Medications: 11:09 Drug: NS 0.9% 1000 ml Route: IV; Rate: 1 bolus; Site: right hand; ld1 12:38 Follow up: Response: No adverse reaction; IV Status: Completed infusion; IV Intake: ld1 1000ml 11:09 Drug: Zofran (Ondansetron) 4 mg Route: IVP; Site: right hand; ld1 12:38 Follow up: Response: No adverse reaction ld1 11:09 Drug: morphine 4 mg Route: IVP; Infused Over: 4 mins; Site: right hand; ld1 12:38 Follow up: Response: No adverse reaction ld1 12:37 Drug: GI Cocktail without - (Maalox Suspension 30 ml, Lidocaine Liquid 2 % 15 ld1 ml) Route: PO; 12:51 Follow up: Response: No adverse reaction ld1 12:38 Drug: Ketorolac 15 mg Route: IVP; Site: right wrist; ld1 12:51 Follow up: Response: No adverse reaction ld1 Medication: 12:51 VIS not applicable for this client. ld1 Intake: 12:38 IV: 1000ml; Total: 1000ml. ld1 Outcome: 12:19 Discharge ordered by MD. zuniga 12:51 Discharged to home ambulatory, with family. ld1 12:51 Condition: stable 12:51 Discharge instructions given to patient, family, Instructed on discharge instructions, follow up and referral plans. medication usage, Demonstrated understanding of instructions, follow-up care, medications, Prescriptions given X 1. 12:51 Patient left the ED. ld1 Signatures: Dispatcher [employer] Yashira Butler Eric em1 Anabela Hart RN RN ap3 Yenifer James RN RN ld1 Karolina Wolf, PAINT TRIMMER PIPE BOWLS PAINT TRIMMER PIPE BOWLS jh7
[2022-08-29] MEDS ORDERED: MAGNES/ALUMIN/SIMET 30ML UCUP ONE (12:36)
[2022-08-29] MEDS ORDERED: LIDOCAINE VISCOUS 2% SOLN 15 ML UDC ONE (12:36)
[2022-08-29] MEDS ORDERED: KETOROLAC 30 MG/ML INJ ONE (12:36)
[2022-08-29 13:22] VITALS: TEMP 98.5; O2SAT 100
[2022-08-29 13:23] VITALS: BP 175/96
== END 2022-08-29 12:51 | disposition home or self-care (01) ==
LOC: ER 10:06
DX: R10.12 Left upper quadrant pain (principal)
CPT/HCPCS: 85025; 36415; 81025; 83690; 80053; 74177; Q9967; J7030; J2405; 81003; 81015; 99284

== ENCOUNTER 2022-08-30 05:34 | Emergency (ER) | payer OTHER ==
[2022-08-30] MEDS ORDERED: KETOROLAC 30 MG/ML INJ ONE (06:31)
[2022-08-30] MEDS ORDERED: MORPHINE 4 MG/ML SYR ONE (06:31)
[2022-08-30] MEDS ORDERED: ONDANSETRON 4 MG/2 ML VIAL ONE (06:31)
[2022-08-30] MEDS ORDERED: NA CHLORIDE 0.9% 1,000 ML ONE (06:31)
[2022-08-30 06:36] LABS: Absolute Lymphocytes (CBC) 2.2 K/uL (0.7-4.9); Hematocrit 40.2 % (36.0-45.0); Lymphocytes % 21.1 % (15.3-44.8); MCV 80.8 fL (80-100); RBC Red Blood Cell Count 4.97 M/uL (3.86-4.86)
[2022-08-30] MEDS ORDERED: DIAZEPAM 5 MG TABLET ONE (07:00)
[2022-08-30] MEDS ORDERED: dexAMETHasone 10 MG/ML VIAL ONE (07:01)
--- NOTE | 2022-08-30 07:05 | RAD REPORT ---
EXAM DESCRIPTION: CT - Spine Lumbar Wo Con - 08/30/2022 6:51 am CLINICAL HISTORY: Low back pain, trauma COMPARISON: CT abdomen and pelvis imaging August 29 TECHNIQUE: Thin section axial imaging of the lumbar spine was performed. Sagittal and coronal recon struction images were generated and reviewed. All CT scans are performed using dose optimization technique as appropriate and may include automated exposure control or mA/KV adjustment according to patient size. FINDINGS: Lumbar bodies are normal in height and alignment. Minimal endplate spurring is seen near t he thoracolumbar junction. No fracture or acute vertebral body finding. Paraspinal musculature is unremarkable. There is no paraspinal mass identified. T11-12: Posterior endplate spurring and disc bulge changes are seen. No large disc herniation identif ied. Central spinal stenosis is not suspected. T12-L1 level: No significant finding L1-2 level: Anterior endplate spurring changes are present. No central canal abnormality identifiable . L2-3 level: Anterior endplate spurring and disc bulge changes are present. No significant central can al abnormality. L3-4 level: No herniation or significant disc bulge in the central canal. No canal or foramen stenosi s. There may be minimal disc bulge in the central canal midline that is not likely of any clinical si gnificance. L4-5 level: No central spinal stenosis. Minimal right foraminal disc bulge is present but does not ap pear to cause stenosis. Facet joint degenerative changes minimal. L5-S1 level: Air is seen in the lateral aspects of the disc probably degenerative. No history of inte rvention is noted. In the central canal there is no large herniation or significant degree of disc bu lging. Mild disc bulge and endplate spurring changes are present in the foramina but perineural fat i s still around the exiting nerve roots. IMPRESSION: As detailed above, there are mild degenerative changes at multiple endplates and in the L5-S1 disc. No central spinal stenosis is present. No measurable disc herniation seen. No canal or foramen signif icant stenoses. No acute bone finding.
[2022-08-30 07:17] LABS: Albumin 3.1 g/dL (3.4-5.0); Bilirubin Total 0.3 mg/dL (0.2-1.0); Potassium 3.9 mmol/L (3.5-5.1); Protein, Total 6.9 g/dL (6.4-8.2)
--- NOTE | 2022-08-30 07:27 | ER ---
Nurse's Notes [facility] Name: Yumiko Reardon Age: 47 yrs Sex: Female : 1975 Arrival Date: 08/30/2022 Time: 05:36 Bed 5 Private MD: Diagnosis: Low back pain;Other injury of muscle, fascia and tendon of lower back;Fall (on) (from) other stairs and steps-bed Presentation: 08/30 05:59 Chief complaint: Patient states: low back pain x 2 days seen here yesterday am for same kl reports pain returned. Coronavirus screen: Vaccine status: Patient reports being unvaccinated. Ebola Screen: Patient negative for fever greater than or equal to 101.5 degrees Fahrenheit, and additional compatible Ebola Virus Disease symptoms. Initial Sepsis Screen: Does the patient meet any 2 criteria? No. Patient's initial sepsis screen is negative. Does the patient have a suspected source of infection? No. Patient's initial sepsis screen is negative. Risk Assessment: Do you want to hurt yourself or someone else? Patient reports no desire to harm self or others. 05:59 Method Of Arrival: Ambulatory 05:59 Acuity: ARLEY 4 kl Triage Assessment: 06:02 General: Appears distressed, uncomfortable, Behavior is cooperative, anxious. Pain: kl Complains of pain in lumbar area and left low back. EENT: No deficits noted. Neuro: No deficits noted. Cardiovascular: No deficits noted. Respiratory: No deficits noted. GI: No deficits noted. No signs and/or symptoms were reported involving the gastrointestinal system. : No deficits noted. No signs and/or symptoms were reported regarding the genitourinary system. Derm: No deficits noted. No signs and/or symptoms reported regarding the dermatologic system. Musculoskeletal: Circulation, motion, and sensation intact. Capillary refill < 3 seconds, Range of motion:. Historical: - Allergies: 06:01 No Known Allergies; kl - PMHx: 06:01 HARD OF HEARING; kl - PSHx: 06:01 None; kl - Immunization history:: Adult Immunizations not up to date. - Social history:: Smoking status: Patient denies any tobacco usage or history of. - Family history:: not pertinent. Screenin:00 [facility] ED Fall Risk Assessment (Adult) History of falling in the last 3 months, jl7 including since admission No falls in past 3 months (0 pts) Confusion or Disorientation No (0 pts) Intoxicated or Sedated No (0 pts) Impaired Gait No (0 pts) Mobility Assist Device Used No (0 pt) Altered Elimination No (0 pt) Score/Fall Risk Level 0 - 2 = Low Risk Oriented to surroundings, Maintained a safe environment. Abuse screen: Denies threats or abuse. Denies injuries from another. Nutritional screening: No deficits noted. Tuberculosis screening: No symptoms or risk factors identified. Assessment: 07:00 General: Appears in no apparent distress. uncomfortable, Behavior is calm, cooperative, jl7 appropriate for age. Pain: Complains of pain in lumbar spine Pain currently is 5 out of 10 on a pain scale. Neuro: Level of Consciousness is awake, alert, obeys commands, Oriented to person, place, time, situation. Cardiovascular: Patient's skin is warm and dry. Respiratory: Airway is patent Respiratory effort is even, unlabored, Respiratory pattern is regular, symmetrical. Derm: Skin is pink, warm \T\ dry. Vital Signs: 05:59 BP 193 / 91; Pulse 68; Resp 18; Temp 98.4; Pulse Ox 100% on R/A; Weight 88.45 kg (R); kl Height 4 ft. 11 in. (149.86 cm); Pain 9/10; 07:29 BP 143 / 72; Pulse 57; Resp 15; Pulse Ox 100% ; jl7 05:59 Body Mass Index 39.38 (88.45 kg, 149.86 cm) ED Course: 05:36 Patient arrived in ED. ag3 05:51 Dominik Liao MD is Attending Physician. lani 06:01 Triage completed. kl 06:53 CT Lumbar Spine Wo Con In Process Unspecified. EDMS 07:00 Patient has correct armband on for positive identification. Placed in gown. Bed in low jl7 position. Call light in reach. Side rails up X 1. Pulse ox on. NIBP on. 07:28 Kenia Rainey, RN is Primary Nurse. jl7 07:42 No provider procedures requiring assistance completed. IV discontinued, intact, jl7 bleeding controlled, No redness/swelling at site. Pressure dressing applied. Administered Medications: 06:00 Drug: morphine 4 mg Route: IVP; Infused Over: 4 mins; Site: right antecubital; kl 06:15 Drug: NS 0.9% 1000 ml Route: IV; Rate: 1 bolus; Site: right antecubital; kl 06:15 Drug: Zofran (Ondansetron) 4 mg Route: IVP; Site: right antecubital; kl 06:50 Drug: TORadol (ketorolac) 30 mg Route: IVP; Site: right antecubital; kl 06:59 Drug: Decadron - Dexamethasone 10 mg Route: IVP; Site: right antecubital; kl 07:00 Drug: Valium (diazepam) 5 mg Route: PO; Medication: 07:00 VIS not applicable for this client. jl7 Outcome: 07:26 Discharge ordered by MD. garibay 07:42 Discharged to home ambulatory. jl7 07:42 Condition: stable 07:42 Discharge instructions given to patient, Instructed on discharge instructions, follow up and referral plans. medication usage, Demonstrated understanding of instructions, follow-up care, medications, Prescriptions given X 4. 07:43 Patient left the ED. jl7 Signatures: Dispatcher [employer] EDMS Crissy Torres, RN Dominik An MD MD cha Leal, Jahala, RN RN Rosaura Marin ag3
--- NOTE | 2022-08-30 07:27 | EDPHYS ---
Physician Documentation [facility] Name: Yumiko Reardon Age: 47 yrs Sex: Female : 1975 Arrival Date: 08/30/2022 Time: 05:36 Bed 5 Private MD: Dominik Serra HPI: 08/30 06:22 This 47 yrs old Female presents to ER via Ambulatory with complaints of Back lani Pain. 06:22 The patient presents with pain that is acute, with no known mechanism of injury. The lani symptoms are located in the low back, lumbar spine. Onset: The symptoms/episode began/occurred 5 day(s) ago. The pain does not radiate. Associated signs and symptoms: Pertinent positives: none. The problem was sustained during a fall, while standing. Modifying factors: The patient symptoms are alleviated by remaining still, the patient symptoms are aggravated by any movement, bending, lifting. Severity of symptoms: At their worst the symptoms were mild. The patient has not experienced similar symptoms in the past. Historical: - Allergies: 06:01 No Known Allergies; kl - PMHx: 06:01 HARD OF HEARING; kl - PSHx: 06:01 None; kl - Immunization history:: Adult Immunizations not up to date. - Social history:: Smoking status: Patient denies any tobacco usage or history of. - Family history:: not pertinent. ROS: 06:22 Constitutional: Negative for fever, chills, and weight loss, Eyes: Negative for injury, lani pain, redness, and discharge, ENT: Negative for injury, pain, and discharge, Neck: Negative for injury, pain, and swelling, Cardiovascular: Negative for chest pain, palpitations, and edema, Respiratory: Negative for shortness of breath, cough, wheezing, and pleuritic chest pain, Abdomen/GI: Negative for abdominal pain, nausea, vomiting, diarrhea, and constipation, : Negative for injury, bleeding, discharge, and swelling, MS/Extremity: Negative for injury and deformity, Skin: Negative for injury, rash, and discoloration, Neuro: Negative for headache, weakness, numbness, tingling, and seizure, Psych: Negative for depression, anxiety, suicide ideation, homicidal ideation, and hallucinations, Allergy/Immunology: Negative for hives, rash, and allergies, Endocrine: Negative for neck swelling, polydipsia, polyuria, polyphagia, and marked weight changes, Hematologic/Lymphatic: Negative for swollen nodes, abnormal bleeding, and unusual bruising. 06:22 Back: Positive for decreased range of motion, pain at rest, pain with movement, of the lumbar area and left low back. Exam: 06:22 Constitutional: This is a well developed, well nourished patient who is awake, alert, lani and in no acute distress. Head/Face: Normocephalic, atraumatic. Eyes: Pupils equal round and reactive to light, extra-ocular motions intact. Lids and lashes normal. Conjunctiva and sclera are non-icteric and not injected. Cornea within normal limits. Periorbital areas with no swelling, redness, or edema. ENT: Nares patent. No nasal discharge, no septal abnormalities noted. Tympanic membranes are normal and external auditory canals are clear. Oropharynx with no redness, swelling, or masses, exudates, or evidence of obstruction, uvula midline. Mucous membranes moist. Neck: Trachea midline, no thyromegaly or masses palpated, and no cervical lymphadenopathy. Supple, full range of motion without nuchal rigidity, or vertebral point tenderness. No Meningismus. Chest/axilla: Normal chest wall appearance and motion. Nontender with no deformity. No lesions are appreciated. Cardiovascular: Regular rate and rhythm with a normal S1 and S2. No gallops, murmurs, or rubs. Normal PMI, no JVD. No pulse deficits. Respiratory: Lungs have equal breath sounds bilaterally, clear to auscultation and percussion. No rales, rhonchi or wheezes noted. No increased work of breathing, no retractions or nasal flaring. Abdomen/GI: Soft, non-tender, with normal bowel sounds. No distension or tympany. No guarding or rebound. No evidence of tenderness throughout. Pelvic Exam: Normal external genitalia. Speculum exam with closed cervical os, no discharge or bleeding noted. Bimanual exam with normal adnexa, no adnexal or cervical motion tenderness. Normal uterus. Female : Normal external genitalia. Skin: Warm, dry with normal turgor. Normal color with no rashes, no lesions, and no evidence of cellulitis. MS/ Extremity: Pulses equal, no cyanosis. Neurovascular intact. Full, normal range of motion. Neuro: Awake and alert, GCS 15, oriented to person, place, time, and situation. Cranial nerves II-XII grossly intact. Motor strength 5/5 in all extremities. Sensory grossly intact. Cerebellar exam normal. Normal gait. Psych: Awake, alert, with orientation to person, place and time. Behavior, mood, and affect are within normal limits. 06:22 Back: pain, that is moderate, ROM is painful, normal spinal alignment noted, CVA tenderness, is absent, muscle spasm, is appreciated in the left low back, left mid back, right mid back and right low back. 07:24 Back: no pilonidal cyst. [facility] Vital Signs: 05:59 BP 193 / 91; Pulse 68; Resp 18; Temp 98.4; Pulse Ox 100% on R/A; Weight 88.45 kg (R); kl Height 4 ft. 11 in. (149.86 cm); Pain 9/10; 07:29 BP 143 / 72; Pulse 57; Resp 15; Pulse Ox 100% ; jl7 05:59 Body Mass Index 39.38 (88.45 kg, 149.86 cm) kl MDM: 05:56 Patient medically screened. [facility] 06:24 Differential diagnosis: chronic back pain, Obesity Osteoporosis Pyelonephritis sprain, [facility] Ureterolithiasis vertebral fracture. Data reviewed: vital signs, nurses notes, lab test result(s), radiologic studies. Consideration of Admission/Observation Patient was admitted/placed on observation. Escalation of care including admission/observation considered. Test considered but Not performed: MRI: spine. Care significantly affected by the following chronic conditions: hard of hearinr. 08/30 06:09 Order name: CBC with Diff; Complete Time: 07:23 [facility] 08/30 06:09 Order name: CMP; Complete Time: 07:23 [facility] 08/30 06:09 Order name: Lipase; Complete Time: 07:23 [facility] 08/30 06:21 Order name: CT Lumbar Spine Wo Con; Complete Time: 07:23 [facility] 08/30 06:09 Order name: IV Saline Lock; Complete Time: 07:29 [facility] 08/30 06:09 Order name: Labs collected and sent; Complete Time: 07:29 [facility] 08/30 06:44 Order name: Misc. Order: recollect green top; Complete Time: 07:00 bb Administered Medications: 06:00 Drug: morphine 4 mg Route: IVP; Infused Over: 4 mins; Site: right antecubital; kl 06:15 Drug: NS 0.9% 1000 ml Route: IV; Rate: 1 bolus; Site: right antecubital; kl 06:15 Drug: Zofran (Ondansetron) 4 mg Route: IVP; Site: right antecubital; kl 06:50 Drug: TORadol (ketorolac) 30 mg Route: IVP; Site: right antecubital; kl 06:59 Drug: Decadron - Dexamethasone 10 mg Route: IVP; Site: right antecubital; kl 07:00 Drug: Valium (diazepam) 5 mg Route: PO; Disposition Summary: 08/30/22 07:26 Discharge Ordered Location: Home lani Problem: new lani Symptoms: have improved lani Condition: Stable lani Diagnosis - Low back pain lani - Other injury of muscle, fascia and tendon of lower back lani - Fall (on) (from) other stairs and steps - bed lani Followup: lani - With: Private Physician - When: 2 - 3 days - Reason: Recheck today's complaints, Continuance of care, Re-evaluation by your physician Discharge Instructions: - Discharge Summary Sheet lani - Acute Back Pain, Adult lani - Musculoskeletal Pain lani - Fall Prevention in the Home, Adult lani - Fall Prevention in the Home, Adult, [id number] Forms: - Medication Reconciliation Form lani - Thank You Letter lani - Antibiotic Education lani - Prescription Opioid Use lani - Work release form aa5 Prescriptions: - Diclofenac Sodium 75 mg Oral Tablet Sustained Release - take 1 tablet by ORAL route 2 times per day; 30 tablet; Refills: 0, Product lani Selection Permitted - Medrol (Tello) 4 mg Oral Tablets, Dose Pack - take 1 tablet by ORAL route as directed - follow package instructions; 1 lani packet; Refills: 0, Product Selection Permitted - Cyclobenzaprine 5 mg Oral Tablet - take 1 tablet by ORAL route 3 times per day As needed; 15 tablet; Refills: 0, [facility] Product Selection Permitted - Tylenol-Codeine #3 300 mg-30 mg Oral - take 2 tablet by ORAL route every 6 hours; 20 tablet; Refills: 0, Product lani Selection Permitted Signatures: Dispatcher [employer] Crissy Rashid RN RN kl Anderson, Corey, MD MD cha Ballard, Brenda RN RN bb
[2022-08-30 07:49] VITALS: TEMP 98.4; O2SAT 100
[2022-08-30 07:50] VITALS: BP 143/72
== END 2022-08-30 07:43 | disposition home or self-care (01) ==
LOC: ER 05:34
DX: S39.092A Other injury of muscle, fascia and tendon of lower back, initial encounter (principal); W06.XXXA Fall from bed, initial encounter
CPT/HCPCS: 85025; 36415; 83690; 80053; 72131; J1100; J7030; J2405

== ENCOUNTER 2023-02-02 13:57 | Emergency (ER) | payer OTHER ==
--- NOTE | 2023-02-02 14:43 | RAD REPORT ---
EXAM DESCRIPTION: [facility]02/02/2023 2:24 pm CLINICAL HISTORY: CHEST PAIN COMPARISON: Chest Single View dated 08/16/2018; CHEST SINGLE VIEW dated 12/11/2013 TECHNIQUE: Portable AP view of the chest. FINDINGS: The lungs are clear. No pneumothorax or effusion. The cardiomediastinal contours are unre markable. IMPRESSION: No acute cardiopulmonary process.
--- NOTE | 2023-02-02 15:02 | RAD REPORT ---
EXAM DESCRIPTION: CT - Head Brain Wo Cont - 02/02/2023 2:28 pm CLINICAL HISTORY: HEADACHE COMPARISON: Head Brain Wo Cont dated 05/10/2022; Head Brain Wo Cont dated 08/16/2018 TECHNIQUE: Noncontrast head CT images were obtained without IV contrast. Multiplanar reformats were generated and reviewed. All CT scans are performed using dose optimization technique as appropriate and may include automated exposure control or mA/KV adjustment according to patient size. FINDINGS: No intracranial hemorrhage, mass, or edema. Midline structures are unremarkable. Normal ventricular caliber for age. Gonzalez-white matter differentiation is preserved, without evidence of acute infarct. No abnormal extra- axial fluid collections. Mastoid air cells and visualized portions of the paranasal sinuses are clear. No acute bony findings. IMPRESSION: No evidence of an acute intracranial process.
[2023-02-02 15:37] LABS: Absolute Lymphocytes (CBC) 2.3 K/uL (0.7-4.9); Hematocrit 40.2 % (36.0-45.0); Lymphocytes % 23.4 % (15.3-44.8); MCV 83.3 fL (80-100); MPV 8.3 fL (7.6-11.3); RBC Red Blood Cell Count 4.82 M/uL (3.86-4.86)
[2023-02-02 15:57] LABS: Potassium 3.9 mEq/L (3.5-5.1); Troponin High Sensitivity 5.2 pg/mL (<58.9)
--- NOTE | 2023-02-02 16:37 | EDPHYS ---
Physician Documentation [facility] Name: Yumiko Reardon Age: 47 yrs Sex: Female : 1975 Arrival Date: 02/02/2023 Time: 13:57 Bed 5 Private MD: ED Physician Tawanda Jeff HPI: 02/02 14:34 This 47 yrs old Female presents to ER via Ambulatory with complaints of rn headache, Bump On Back. 14:34 The patient complains of pain to the top of head, forehead, right zoroastrianism and left rn zoroastrianism. The patient describes the headache as aching. 14:35 Onset: The symptoms/episode began/occurred 2 week(s) ago. Associated signs and rn symptoms: Pertinent negatives: altered mental status, fever, neck stiffness, rash, vision changes, vision loss, vomiting, weakness, vertigo. Severity of symptoms: At its worst the pain was moderate, in the emergency department the pain is unchanged. The symptoms are alleviated by nothing. the symptoms are aggravated by nothing. The patient has not experienced similar symptoms in the past. Pt reports headache for 2 weeks, pressure/pain, across forehead from zoroastrianism to zoroastrianism. No fever. NO trauma. No focal neuro complaint. Denies hx of HTN. Also reports "bump on back", for several years, no pain, just wasn't sure if related to headache. . Historical: - Allergies: 14:09 No Known Drug Allergies; ll1 - PMHx: 14:09 HARD OF HEARING; Anemia; ll1 - PSHx: 14:09 None; ll1 - Immunization history:: Client reports receiving the 2nd dose of the Covid vaccine. - Social history:: Smoking status: Patient denies any tobacco usage or history of. - Family history:: not pertinent. - Hospitalizations: : No recent hospitalization is reported. ROS: 14:35 Constitutional: Negative for fever, chills, and weight loss, Eyes: Negative for injury, rn pain, redness, and discharge, Neck: Negative for injury, pain, and swelling, Cardiovascular: Negative for chest pain, palpitations, and edema, Respiratory: Negative for shortness of breath, cough, wheezing, and pleuritic chest pain, Abdomen/GI: Negative for abdominal pain, nausea, vomiting, diarrhea, and constipation, Back: Negative for injury and pain, MS/Extremity: Negative for injury and deformity, Skin: Negative for injury, rash, and discoloration, Neuro: + headache, no focal weakness/numbness Exam: 14:37 Constitutional: This is a well developed, well nourished patient who is awake, alert, rn and in no acute distress. Head/Face: Normocephalic, atraumatic. Eyes: Pupils equal round and reactive to light, extra-ocular motions intact Neck: Supple, full range of motion without nuchal rigidity. No Meningismus. Cardiovascular: Regular rate and rhythm. No pulse deficits. Respiratory: No increased work of breathing, no retractions or nasal flaring. Abdomen/GI: Soft, non-tender Back: Upper back with midline soft, non-tender, mobile 3cm mass, no fluctuance. Skin: Warm, dry MS/ Extremity: Pulses equal, no cyanosis. Neuro: Awake and alert, GCS 15, oriented to person, place, time, and situation. Cranial nerves II-XII grossly intact. Motor strength 5/5 in all extremities. Sensory grossly intact. Cerebellar exam normal. Normal gait. 16:35 ECG was reviewed by the Attending Physician. rn Vital Signs: 14:06 BP 231 / 100; Pulse 65; Resp 17; Temp 97.5; Pulse Ox 100% ; Pain 2/10; ll1 15:01 BP 193 / 99; Pulse 57; Resp 16; Pulse Ox 100% on R/A; cm10 16:10 BP 202 / 100; Pulse 61; Resp 18; Pulse Ox 100% on R/A; ld1 16:42 BP 180 / 92; Pulse 62; ss 14:06 Pain Scale: Adult ll1 Royal Coma Score: 16:35 Eye Response: spontaneous(4). Motor Response: obeys commands(6). Verbal Response: rn oriented(5). Total: 15. MDM: 14:04 Patient medically screened. rn 16:35 Differential diagnosis: hypertensive headache, intracerebral hemorrhage, migraine, rn tension headache, vasomotor headache. Data reviewed: vital signs, nurses notes, radiologic studies, CT scan, and as a result, I will discharge patient. Counseling: I had a detailed discussion with the patient and/or guardian regarding: the historical points, exam findings, and any diagnostic results supporting the discharge/admit diagnosis, lab results, radiology results, the need for outpatient follow up, to return to the emergency department if symptoms worsen or persist or if there are any questions or concerns that arise at home. Response to treatment: the patient's symptoms have mildly improved after treatment, and as a result, I will discharge patient. Special discussion: I discussed with the patient/guardian in detail that at this point there is no indication for admission to the hospital. It is understood, however, that if the symptoms persist or worsen the patient needs to return immediately for re-evaluation. Based on the history and exam findings, there is no indication for further emergent testing or inpatient evaluation. I discussed with the patient/guardian the need to see the primary care provider for further evaluation of the symptoms. 02/02 14:13 Order name: Basic Metabolic Panel; Complete Time: 16: rn 02/02 14:13 Order name: CBC with Diff; Complete Time: : rn 02/02 14:13 Order name: NT PRO-BNP; Complete Time: 16: rn 02/02 14:13 Order name: Troponin HS; Complete Time: 16: rn 02/02 14:13 Order name: XRAY Chest (1 view); Complete Time: 15: rn 02/02 14:13 Order name: CT Head Brain wo Cont; Complete Time: 15: rn 02/02 14:13 Order name: EKG; Complete Time: 14:14 rn 02/02 14:13 Order name: Cardiac monitoring; Complete Time: 15: rn 02/02 14:13 Order name: EKG - Nurse/Tech; Complete Time: 15: rn 02/02 14:13 Order name: IV Saline Lock; Complete Time: 15: rn 02/02 14:13 Order name: Labs collected and sent; Complete Time: 15: rn 02/02 14:13 Order name: O2 Per Protocol; Complete Time: 15: rn 02/02 14:13 Order name: O2 Sat Monitoring; Complete Time: 15: rn EC:35 Rate is 58 beats/min. Rhythm is regular. QRS [place] is Normal. NV interval is normal. QRS rn interval is normal. QT interval is normal. No Q waves. T waves are Normal. No ST changes noted. Clinical impression: Sinus bradycardia. Interpreted by me. Reviewed by me. Administered Medications: No medications were administered Disposition Summary: 02/02/23 16:36 Discharge Ordered Location: Home rn Problem: new rn Symptoms: have improved rn Condition: Stable rn Diagnosis - Headache rn - Essential (primary) hypertension rn Followup: rn - With: Private Physician - When: As needed - Reason: Recheck today's complaints, Re-evaluation by your physician Discharge Instructions: - Discharge Summary Sheet rn - Hypertension, Adult rn - Managing Your Hypertension rn Forms: - Medication Reconciliation Form rn - Thank You Letter rn - Antibiotic quality assurance intern - Prescription Opioid Use rn - [email or web address] rn - Work release form em1 Prescriptions: - Hydrochlorothiazide 25 mg Oral Tablet - take 1 tablet by ORAL route once daily .; 30 tablet; Refills: 0, Product rn Selection Permitted Signatures: Dispatcher [employer] Tawanda Celestin MD MD rn Lewis, Lynsay, RN RN ll1
--- NOTE | 2023-02-02 16:37 | ER ---
Nurse's Notes [facility] Name: Yumiko Reardon Age: 47 yrs Sex: Female : 1975 Arrival Date: 02/02/2023 Time: 13:57 Bed 5 Private MD: Diagnosis: Headache;Essential (primary) hypertension Presentation: 02/02 14:06 Chief complaint: Patient states: 1. Bump on back for a couple years, + itching. 2. Head ll1 pressure for 2 weeks. + neck and upper back pain. Tried Zyrtec and sinus medication that didn't help a lot. Coronavirus screen: Vaccine status: Patient reports receiving the 2nd dose of the covid vaccine. Client denies travel out of the [place] in the last 14 days. At this time, the client does not indicate any symptoms associated with coronavirus-19. Ebola Screen: Patient denies travel to an Ebola-affected area in the 21 days before illness onset. Initial Sepsis Screen: Does the patient meet any 2 criteria? No. Patient's initial sepsis screen is negative. Does the patient have a suspected source of infection? No. Patient's initial sepsis screen is negative. Risk Assessment: Do you want to hurt yourself or someone else? Patient reports no desire to harm self or others. Onset of symptoms was January 22, 2023. 14:06 Method Of Arrival: Ambulatory ll1 14:06 Acuity: ARLEY 2 ll1 Triage Assessment: 14:09 General: Appears in no apparent distress. Behavior is calm, cooperative, appropriate ll1 for age. Pain: Complains of pain in head Pain currently is 8 out of 10 on a pain scale. Quality of pain is described as aching. Neuro: Reports headache. Derm: Reports lump to mid back. Historical: - Allergies: 14:09 No Known Drug Allergies; ll1 - PMHx: 14:09 HARD OF HEARING; Anemia; ll1 - PSHx: 14:09 None; ll1 - Immunization history:: Client reports receiving the 2nd dose of the Covid vaccine. - Social history:: Smoking status: Patient denies any tobacco usage or history of. - Family history:: not pertinent. - Hospitalizations: : No recent hospitalization is reported. Screenin:02 [facility] [place] ED Fall Risk Assessment (Adult) History of falling in the last 3 months, cm10 including since admission No falls in past 3 months (0 pts) Confusion or Disorientation No (0 pts) Intoxicated or Sedated No (0 pts) Impaired Gait No (0 pts) Mobility Assist Device Used No (0 pt) Altered Elimination No (0 pt) Score/Fall Risk Level 0 - 2 = Low Risk Oriented to surroundings, Maintained a safe environment, Hourly rounding (assess needs \T\ fall precautionary measures) done. Abuse screen: Denies threats or abuse. Denies injuries from another. Nutritional screening: No deficits noted. Nutritional screening: No deficits noted. Tuberculosis screening: No symptoms or risk factors identified. Assessment: 15:00 General: Appears in no apparent distress. comfortable, Behavior is calm, cooperative. cm10 Neuro: No deficits noted. Level of Consciousness is awake, alert, Oriented to person, place, time, situation, Reports headache. Cardiovascular: No deficits noted. Capillary refill < 3 seconds. Respiratory: No deficits noted. Airway is patent Respiratory effort is even, unlabored, Respiratory pattern is regular, symmetrical. Derm: Reports Bump to her back. Vital Signs: 14:06 BP 231 / 100; Pulse 65; Resp 17; Temp 97.5; Pulse Ox 100% ; Pain 2/10; ll1 15:01 BP 193 / 99; Pulse 57; Resp 16; Pulse Ox 100% on R/A; cm10 16:10 BP 202 / 100; Pulse 61; Resp 18; Pulse Ox 100% on R/A; ld1 16:42 BP 180 / 92; Pulse 62; ss 14:06 Pain Scale: Adult ll1 Maryan Coma Score: 16:35 Eye Response: spontaneous(4). Motor Response: obeys commands(6). Verbal Response: rn oriented(5). Total: 15. ED Course: 13:59 Patient arrived in ED. rg4 14:04 Tawanda Jeff MD is Attending Physician. rn 14:09 Triage completed. ll1 14:09 Arm band placed on. ll1 14:26 XRAY Chest (1 view) In Process Unspecified. EDMS 14:30 CT Head Brain wo Cont In Process Unspecified. EDMS 14:56 Vivian Moyer, ABDELRAHMAN is Primary Nurse. cm10 15:03 Patient has correct armband on for positive identification. Placed in gown. Bed in low cm10 position. Call light in reach. Side rails up X2. Pulse ox on. NIBP on. 15:26 Inserted saline lock: 22 gauge in left antecubital area, using aseptic technique. Blood ds4 collected. 16:42 No provider procedures requiring assistance completed. IV discontinued, intact, ss bleeding controlled, No redness/swelling at site. Pressure dressing applied. Administered Medications: No medications were administered Outcome: 16:36 Discharge ordered by . rn 16:42 Discharged to home ambulatory. ss 16:42 Condition: good 16:42 Discharge instructions given to patient, Instructed on discharge instructions, follow up and referral plans. medication usage, Demonstrated understanding of instructions, follow-up care, medications, Prescriptions given X 1. 16:43 Patient left the ED. Signatures: Dispatcher [employer] EDMS Tawanda Jeff MD MD rn Blanchard, Shelby, RN RN Cain Blanton ds4 Luciana Vasquez rg4 Robin Torres RN RN ll1 Yenifer Marcial RN RN ld1 Vivian Moyer RN RN cm10 Corrections: (The following items were deleted from the chart) 14:10 14:06 Pulse 65bpm; Resp 17bpm; Pulse Ox 100%; Temp 97.5F; Pain 2/10, Adult; ll1 ll1
[2023-02-02 17:17] VITALS: TEMP 97.5; O2SAT 100
[2023-02-02 17:20] VITALS: BP 180/92
--- NOTE | 2023-02-04 16:22 | EKG ---
Test Date: 2023-02-02 Test Time: 15:08:59 Gear Hobber: CASEY MEASUREMENT RESULTS: Intervals: Rate: 58 NM: 152 QRSD: 86 QT: 424 QTc: 416 [place]: P: 54 NM: 152 QRS: -16 T: 48 INTERPRETIVE STATEMENTS: Sinus bradycardia Otherwise normal ECG Compared to ECG 08/16/2018 07:42:00 No significant changes Electronically Signed On 02-04-23 16:18:49 CDT by Augustine Quintana
== END 2023-02-02 16:43 | disposition home or self-care (01) ==
LOC: ER 13:57
DX: I10 Essential (primary) hypertension (principal)
CPT/HCPCS: 36415; 70450; 71045; 80048; 83880; 84484; 85025; 93005; 99284

== ENCOUNTER 2024-03-17 11:00 | Emergency (ER) | payer OTHER ==
--- NOTE | 2024-03-17 13:24 | ER ---
Nurse's Notes [facility] Name: Yumiko Reardon Age: 48 yrs Sex: Female : 1975 Arrival Date: 03/17/2024 Time: 11:00 Bed 6 Private MD: Diagnosis: Pain in left foot Presentation: 03/17 11:36 Chief complaint: Patient states: LEFT LEG PAIN STARTED TAURUS. PAIN RADIATES FROM TOP db OF FOOT UP INTO BACK OF KNEE. TRIED GABAPENTIN AND OTC PAIN MEDICATION. Coronavirus screen: Client denies travel out of the [place] in the last 14 days. At this time, the client does not indicate any symptoms associated with coronavirus-19. Ebola Screen: Patient negative for fever greater than or equal to 101.5 degrees Fahrenheit, and additional compatible Ebola Virus Disease symptoms Patient denies exposure to infectious person. Patient denies travel to an Ebola-affected area in the 21 days before illness onset. No symptoms or risks identified at this time. Initial Sepsis Screen: Does the patient meet any 2 criteria? No. Patient's initial sepsis screen is negative. Does the patient have a suspected source of infection? No. Patient's initial sepsis screen is negative. Risk Assessment: Do you want to hurt yourself or someone else? Patient reports no desire to harm self or others. Onset of symptoms was March 15, 2024. 11:36 Method Of Arrival: Ambulatory db 11:36 Acuity: ARLEY 3 db Triage Assessment: 11:36 General: Appears in no apparent distress. comfortable, Behavior is calm, cooperative. db Pain: Complains of pain in left foot and left leg. Neuro: Level of Consciousness is awake, alert, obeys commands, Oriented to person, place, time, situation. Respiratory: Airway is patent Respiratory effort is even, unlabored, Respiratory pattern is regular, symmetrical. 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 - Infectious Disease History:: Denies. - Social history:: Smoking status: Patient denies any tobacco usage or history of. Screenin:34 [facility] ED Fall Risk Assessment (Adult) History of falling in the last 3 months, mb9 including since admission No falls in past 3 months (0 pts) Confusion or Disorientation No (0 pts) Intoxicated or Sedated No (0 pts) Impaired Gait No (0 pts) Mobility Assist Device Used No (0 pt) Altered Elimination No (0 pt) Score/Fall Risk Level 0 - 2 = Low Risk Oriented to surroundings, Maintained a safe environment, Educated pt \T\ family on fall prevention, incl call for assistance when getting out of bed. Abuse screen: Denies threats or abuse. Nutritional screening: No deficits noted. Tuberculosis screening: No symptoms or risk factors identified. Assessment: 11:43 General: Appears in no apparent distress. Behavior is calm, cooperative. Pain: ld1 Complains of pain in left foot Pain radiates to left leg Pain currently is 8 out of 10 on a pain scale. Quality of pain is described as throbbing, Pain began suddenly, Is continuous. Neuro: Vargas Agitation-Sedation Scale (RASS): 0 - Alert and Calm Level of Consciousness is awake, alert, obeys commands, Oriented to person, place, time, situation, Appropriate for age. Cardiovascular: Patient's skin is warm and dry. Cardiovascular: Pulses are all present. Respiratory: Airway is patent Respiratory effort is even, unlabored, Respiratory pattern is regular, symmetrical. GI: No signs and/or symptoms were reported involving the gastrointestinal system. : No signs and/or symptoms were reported regarding the genitourinary system. EENT: No signs and/or symptoms were reported regarding the EENT system. Derm: Skin is pink, warm \T\ dry. Musculoskeletal: Range of motion: intact in all extremities. 13:16 Reassessment: No changes from previously documented assessment. Patient and/or family mb9 updated on plan of care and expected duration. Pain level reassessed. Patient is alert, oriented x 3, equal unlabored respirations, skin warm/dry/pink. Vital Signs: 11:36 BP 134 / 83; Pulse 67; Resp 16; Temp 98.3(O); Pulse Ox 99% ; Weight 77.11 kg; Height 4 db ft. 11 in. ; Pain 8/10; 13:17 BP 128 / 86; Pulse 74; Resp 18; Pulse Ox 100% on R/A; mb9 11:36 Body Mass Index 34.34 (77.11 kg, 149.86 cm) db 11:36 Pain Scale: Adult db ED Course: 11:09 Patient arrived in ED. mg5 11:30 Arm band placed on Patient placed in an exam room. db 11:33 Yumiko Leiva, RN is Primary Nurse. mb9 11:33 Arm band placed on. mb9 11:35 Vernon Hand PA is PHCP. jr8 11:35 Dominik Liao MD is Attending Physician. jr8 11:35 Bed in low position. Call light in reach. Side rails up X 1. Provided Education on: mb9 press call light if needing anything. Client placed on continuous cardiac and pulse oximetry monitoring. NIBP monitoring applied. 11:38 Triage completed. db 11:44 No provider procedures requiring assistance completed. ld1 12:17 Foot Left 3 View XRAY In Process Unspecified. EDMS 13:53 IV discontinued, intact, bleeding controlled, No redness/swelling at site. Pressure mb9 dressing applied. Administered Medications: No medications were administered Medication: 11:44 VIS not applicable for this client. ld1 Outcome: 13:24 Discharge ordered by MD. prashanth 13:53 Discharged to home ambulatory, with family, salena 13:53 Condition: stable 13:53 Discharge instructions given to patient, Instructed on discharge instructions, follow up and referral plans. Demonstrated understanding of instructions, follow-up care, medications, Prescriptions given X 2, 13:53 Patient left the ED. salena Signatures: Dispatcher [employer] EDCT Vernon Hand PA PA jr8 Yenifer Marcial RN RN ld1 Henrietta Bansal RN RN db Yumiko Leiva, RN RN mb9 Ashlyn Fuentes mg5 Corrections: (The following items were deleted from the chart) 11:38 11:36 Onset of symptoms was March 17, 2024 db db
--- NOTE | 2024-03-17 13:24 | EDPHYS ---
Physician Documentation [facility] Name: Yumiko Reardon Age: 48 yrs Sex: Female : 1975 Arrival Date: 03/17/2024 Time: 11:00 Bed 6 Private MD: ED Physician Domiink Liao HPI: 03/17 13:20 This 48 yrs old Female presents to ER via Ambulatory with complaints of Foot jr8 Pain. 13:20 The patient presents with pain, that is acute, tenderness. The complaints affect the jr8 dorsum of left foot. Onset: The symptoms/episode began/occurred acutely, 2 day(s) ago. Modifying factors: The symptoms are alleviated by remaining still, the symptoms are aggravated by movement, weight bearing. Associated signs and symptoms: The patient has no apparent associated signs or symptoms. Severity of symptoms: At their worst the symptoms were mild, in the emergency department the symptoms are unchanged. The patient has not experienced similar symptoms in the past. The patient has not recently seen a physician. 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 - Infectious Disease History:: Denies. - Social history:: Smoking status: Patient denies any tobacco usage or history of. ROS: 13:20 Eyes: Negative for injury, pain, redness, and discharge, ENT: Negative for injury, jr8 pain, and discharge, Neck: Negative for injury, pain, and swelling, Cardiovascular: Negative for chest pain, palpitations, and edema, Respiratory: Negative for shortness of breath, cough, wheezing, and pleuritic chest pain, Abdomen/GI: Negative for abdominal pain, nausea, vomiting, diarrhea, and constipation, Back: Negative for injury and pain, Skin: Negative for injury, rash, and discoloration, Neuro: Negative for headache, weakness, numbness, tingling, and seizure, 13:20 MS/extremity: Positive for pain, tenderness, of the dorsum of left foot, Exam: 13:20 Constitutional: This is a well developed, well nourished patient who is awake, alert, jr8 and in no acute distress. Cardiovascular: Regular rate and rhythm with a normal S1 and S2. No gallops, murmurs, or rubs. Normal PMI, no JVD. No pulse deficits. Respiratory: Lungs have equal breath sounds bilaterally, clear to auscultation and percussion. No rales, rhonchi or wheezes noted. No increased work of breathing, no retractions or nasal flaring. Abdomen/GI: Soft, non-tender, with normal bowel sounds. No distension or tympany. No guarding or rebound. No evidence of tenderness throughout. Back: No spinal tenderness. No costovertebral tenderness. Full range of motion. Skin: Warm, dry with normal turgor. Normal color with no rashes, no lesions, and no evidence of cellulitis. Neuro: Awake and alert, GCS 15, oriented to person, place, time, and situation. Cranial nerves II-XII grossly intact. Motor strength 5/5 in all extremities. Sensory grossly intact. Cerebellar exam normal. Normal gait. 13:20 Musculoskeletal/extremity: Extremities: grossly normal except: noted in the dorsum of left foot: pain, tenderness, mid dorsal left foot over the 2-4th metatarsals, ROM: intact in all extremities, Circulation is intact in all extremities. Sensation intact. DVT Exam: no pain, no swelling, no tenderness, negative Homans' sign noted on exam, no appreciated bluish discoloration, no erythema, no increased warmth, Vital Signs: 11:36 BP 134 / 83; Pulse 67; Resp 16; Temp 98.3(O); Pulse Ox 99% ; Weight 77.11 kg; Height 4 db ft. 11 in. ; Pain 8/10; 13:17 BP 128 / 86; Pulse 74; Resp 18; Pulse Ox 100% on R/A; mb9 11:36 Body Mass Index 34.34 (77.11 kg, 149.86 cm) db 11:36 Pain Scale: Adult db MDM: 11:43 Patient medically screened. jr8 13:20 Differential diagnosis: dislocation, closed fracture, contusion, tendonitis. Data jr8 reviewed: vital signs, nurses notes, radiologic studies, plain films. Independent interpretation of the following test(s) in the Emergency Department X-Ray: My interpretation is No acute fracture of foot noted . Counseling: I had a detailed discussion with the patient and/or guardian regarding the historical points, exam findings, and any diagnostic results supporting the discharge/admit diagnosis, radiology results, the need for outpatient follow up, a family practitioner, to return to the emergency department if symptoms worsen or persist or if there are any questions or concerns that arise at home. ED course: Discussed with patient that there is no acute findings on imaging. Will start her on short course of pain medication and steroids to see if it will help with the inflammatory condition. Needs to follow-up with family care otherwise.. 03/17 11:53 Order name: Foot Left 3 View XRAY; Complete Time: 13:37 jr8 Administered Medications: No medications were administered Disposition Summary: 03/17/24 13:24 Discharge Ordered Notes: Location: Home jr8 Problem: new jr8 Symptoms: have improved jr8 Condition: Stable jr8 Diagnosis - Pain in left foot jr8 Followup: jr8 - With: Private Physician - When: 1 week - Reason: Recheck today's complaints, Continuance of care, Re-evaluation by your physician Discharge Instructions: - Discharge Summary Sheet jr8 - Foot Pain jr8 Forms: - Medication Reconciliation Form jr8 - Antibiotic Education jr8 - Prescription Opioid Use jr8 - Patient Portal Instructions jr8 - Leadership Thank You Letter jr8 Prescriptions: - Tramadol 50 mg Oral Tablet - take 1 tablet ORAL route every 8 hours as needed; 12 tablet; Refills: 0, jr8 Product Selection Permitted - Medrol (Tello) 4 mg Oral Tablets, Dose Pack - take 1 tablet ORAL route as directed - follow package instructions; 1 packet; jr8 Refills: 0, Product Selection Permitted Signatures: Dispatcher [employer] Vernon Monsalve PA PA jr8 Henrietta Bansal RN RN Yumiko Squires RN RN mb9
--- NOTE | 2024-03-17 13:33 | RAD REPORT ---
EXAM DESCRIPTION: RAD - Foot Left 3 View - 03/17/2024 12:16 pm CLINICAL HISTORY: PAIN COMPARISON: No comparisons FINDINGS/IMPRESSION: No acute fracture. No malalignment. Plantar and dorsal aspect calcaneal spurs.
[2024-03-17 14:16] VITALS: TEMP 98.3
[2024-03-17 14:18] VITALS: BP 128/86; O2SAT 100
--- OUTSIDE RECORDS SUMMARY | 2024-03-19 12:33 | XMS REPORT | Continuity of Care Document ---
Author Name Unknown Address [address] [place] [address] [place] [address] thconnect Address [address] [facility] [address] [place] [address] Care Team Providers Care Resp Therapist Name Role Phone [email or web address] Attending Clinician Unavaila ble [email or web address]_S Admitting Clinician Unavaila ble Encounters Start Date/Time End Date/Time Encounter Type Admission Type Attending Clinicians Care Facility Care Department Encounter ID Source 2023-05-30 00:00:00 2023-05-30 00:00:00 Outpatient [email or web address] diyala_S PRIV PRIV [id number] [facility] 2023-05-29 00:00:00 2023-05-29 00:00:00 Outpatient [email or web address] diyala_S PRIV PRIV [id number] [facility]
== END 2024-03-17 13:53 | disposition home or self-care (01) ==
LOC: ER 11:00
DX: M79.672 Pain in left foot (principal)
CPT/HCPCS: 99283

== ENCOUNTER 2024-09-02 15:45 | Emergency (ER) | payer OTHER ==
--- OUTSIDE RECORDS SUMMARY | 2024-09-02 15:48 | XMS REPORT | Continuity of Care Document ---
Author Name Unknown Address [address] [place] [address] thconnect Address [address] [place] [address] 1 495 [id number] Care Team Providers Care Stave Bolt Equalizer Name Role Phone [email or web address]_S Attending Clinician Unavaila ble [email or web address]_S Admitting Clinician Unavaila ble Encounters Start Date/Time End Date/Time Encounter Type Admission Type Attending Clinicians Care Facility Care Department Encounter ID Source 2023-05-30 00:00:00 2023-05-30 00:00:00 Outpatient [email or web address] diyala_S PRIV PRIV [id number] [facility] 2023-05-29 00:00:00 2023-05-29 00:00:00 Outpatient [email or web address] diyala_S PRIV PRIV [id number] [facility]
--- NOTE | 2024-09-02 17:22 | EDPHYS ---
Physician Documentation [facility] Name: Yumiko Reardon Age: 49 yrs Sex: Female : 1975 Arrival Date: 09/02/2024 Time: 15:45 Bed IW3 Private MD: ED Physician Apollo Marcial HPI: 09/02 17:15 This 49 yrs old Female presents to ER via Ambulatory with complaints of cp Abscess. 17:15 The patient presents with cellulitis of the back. Description: erythematous. cp 17:15 Onset: The symptoms/episode began/occurred today. cp 17:15 Associated signs and symptoms: Pertinent positives: erythema, Pertinent negatives: cp discharge, drainage, fever. 17:15 Patient reports history of cyst located right side of back that has become painful and cp erythematous today. 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 - Infectious Disease History:: Denies. - Social history:: Smoking status: Patient denies any tobacco usage or history of. ROS: 17:17 Constitutional: history per hpi cp 17:17 Constitutional: Negative for body aches, chills, fever, cp 17:17 ENT: Negative for drainage from ear(s), ear pain, sore throat, difficulty swallowing, difficulty handling secretions, 17:17 Cardiovascular: Negative for chest pain, palpitations, 17:17 Respiratory: Negative for cough, shortness of breath, wheezing, 17:17 Abdomen/GI: Negative for abdominal pain, vomiting, diarrhea, constipation, 17:17 Back: Positive for pain at rest, pain with movement, 17:17 Skin: Positive for of the back, history of cyst, 17:17 Neuro: Negative for altered mental status, weakness, 17:17 All other systems are negative, Exam: 17:19 Constitutional: The patient appears in no acute distress, alert, awake, non-toxic, well cp developed, well nourished, 17:19 Head/Face: Normocephalic, atraumatic. cp 17:19 Chest/axilla: Inspection: normal, 17:19 Cardiovascular: Rate: normal, 17:19 Respiratory: the patient does not display signs of respiratory distress, Respirations: normal, no use of accessory muscles, no retractions, labored breathing, is not present, Breath sounds: are clear throughout, no decreased breath sounds, 17:19 Abdomen/GI: Inspection: abdomen appears normal, 17:19 Back: pain, that is mild, of the right subscapular area, approximate golf ball size cyst with mild erythema, tender to palpation, no drainage able to be expressed, Vital Signs: 16:27 BP 134 / 84; Pulse 60; Resp 16; Temp 98.2; Pulse Ox 100% on R/A; Weight 68.04 kg; hb Height 4 ft. 11 in. ; Pain 7/10; 16:27 Body Mass Index 30.30 (68.04 kg, 149.86 cm) hb 16:27 Pain Scale: Adult hb MDM: 16:42 Medical Screening Exam initiated cp 17:20 Differential diagnosis: abscess, cellulitis, insect bite, infected EIC. cp 17:21 Data reviewed: vital signs, nurses notes, and as a result, I will discharge patient, cp refer to general surgery for removal of cyst and prescribe antibiotics. 17:21 Care significantly affected by the following chronic conditions: Hypertension. cp Counseling: I had a detailed discussion with the patient and/or guardian regarding the historical points, exam findings, and any diagnostic results supporting the discharge/admit diagnosis, the need for outpatient follow up, for definitive care, a general surgeon. Administered Medications: No medications were administered Disposition: 17:35 I was immediately available on-site in the Emergency Department for consultation in the [facility] care of the patient. Disposition Summary: 09/02/24 17:21 Discharge Ordered Notes: Location: Home cp Problem: new cp Symptoms: have improved cp Condition: Stable cp Diagnosis - Local infection of the skin and subcutaneous tissue, unspecified cp - Epidermal cyst - right mid back cp Followup: cp - With: Cristian Moyer MD - When: 2 - 3 days - Reason: cyst removal Discharge Instructions: - Discharge Summary Sheet cp - Cellulitis, Adult cp - Epidermoid Cyst Removal cp - Epidermoid Cyst cp Forms: - Medication Reconciliation Form cp - Antibiotic Education cp - Prescription Opioid Use cp - Patient Portal Instructions cp - Leadership Thank You Letter cp Prescriptions: - Doxycycline Hyclate 100 mg Oral Tablet - take 1 tablet ORAL route every 12 hours; 20 tablet; Refills: 0, Product cp Selection Permitted Signatures: Dominik Knight PA PA cp Baxter, Heather, RN RN Apollo Arambula DO DO ms3
--- NOTE | 2024-09-02 17:22 | ER ---
Nurse's Notes [facility] Name: Yumiko Reardon Age: 49 yrs Sex: Female : 1975 Arrival Date: 09/02/2024 Time: 15:45 Bed IW3 Private MD: Diagnosis: Local infection of the skin and subcutaneous tissue, unspecified;Epidermal cyst-right mid back Presentation: 09/02 16:27 Chief complaint: Abscess on right mid back x 1 year, became painful today. Coronavirus hb screen: At this time, the client does not indicate any symptoms associated with coronavirus-19. Ebola Screen: No symptoms or risks identified at this time. Initial Sepsis Screen: Does the patient meet any 2 criteria? No. Patient's initial sepsis screen is negative. Does the patient have a suspected source of infection? No. Patient's initial sepsis screen is negative. Risk Assessment: Do you want to hurt yourself or someone else? Patient reports no desire to harm self or others. Onset of symptoms was September 02, 2024. 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 - Infectious Disease History:: Denies. - Social history:: Smoking status: Patient denies any tobacco usage or history of. Screenin:31 [facility] ED Fall Risk Assessment (Adult) History of falling in the last 3 months, ll1 including since admission No falls in past 3 months (0 pts) Confusion or Disorientation No (0 pts) Intoxicated or Sedated No (0 pts) Impaired Gait No (0 pts) Mobility Assist Device Used No (0 pt) Altered Elimination No (0 pt) Score/Fall Risk Level 0 - 2 = Low Risk Maintained a safe environment, Hourly rounding (assess needs \T\ fall precautionary measures) done. Abuse screen: Denies threats or abuse. Nutritional screening: No deficits noted. Tuberculosis screening: No symptoms or risk factors identified. Assessment: 17:31 General: Appears in no apparent distress. Behavior is calm, cooperative, appropriate ll1 for age. Pain: Complains of pain in back Quality of pain is described as aching. Derm: Abscess located on back. Vital Signs: 16:27 BP 134 / 84; Pulse 60; Resp 16; Temp 98.2; Pulse Ox 100% on R/A; Weight 68.04 kg; hb Height 4 ft. 11 in. ; Pain 7/10; 16:27 Body Mass Index 30.30 (68.04 kg, 149.86 cm) hb 16:27 Pain Scale: Adult hb ED Course: 15:48 Patient arrived in ED. mr 15:49 Dominik Knight PA is PHCP. cp 15:50 Apollo Marcial DO is Attending Physician. cp 16:28 Triage completed. hb 16:29 Arm band placed on. hb 17:20 Cristian Moyer MD is Referral Physician. cp 17:31 No provider procedures requiring assistance completed. Patient did not have IV access ll1 during this emergency room visit. 17:32 Patient has correct armband on for positive identification. Bed in low position. ll1 Provided Education on: finish all prescribed antibiotics. Cardiac monitoring not applicable on this patient. Administered Medications: No medications were administered Medication: 17:32 VIS not applicable for this client. ll1 Outcome: 17:21 Discharge ordered by MD. cp 17:31 Discharged to home ambulatory, ll1 17:31 Condition: stable 17:31 Discharge instructions given to patient, Instructed on discharge instructions, follow up and referral plans. medication usage, Demonstrated understanding of instructions, follow-up care, medications, Prescriptions given X 1, 17:33 Patient left the ED. ll1 Signatures: Yumiko Luther, Reg Reg mr Dominik Knight PA PA cp Baxter, Heather, ABDELRAHMAN RN Robin Torres RN RN ll1
[2024-09-02 17:57] VITALS: BP 134/84; TEMP 98.2; O2SAT 100
== END 2024-09-02 17:33 | disposition home or self-care (01) ==
LOC: ER 15:45
DX: L03.312 Cellulitis of back [any part except buttock and flank] (principal); L72.0 Epidermal cyst
CPT/HCPCS: 99283

== ENCOUNTER 2024-09-29 10:10 | Emergency (ER) | payer OTHER ==
--- OUTSIDE RECORDS SUMMARY | 2024-09-29 10:13 | XMS REPORT | Continuity of Care Document ---
Author Name Unknown Address [address] [place] [address] thconnect Address [address] [place] [address] 1 [address] [place] [address] Care Team Providers Care Diabetes Manager Name Role Phone [email or web address]_S Attending Clinician Unavaila ble [email or web address]_S Admitting Clinician Unavaila ble Encounters Start Date/Time End Date/Time Encounter Type Admission Type Attending Clinicians Care Facility Care Department Encounter ID Source 2023-05-30 00:00:00 2023-05-30 00:00:00 Outpatient [email or web address] diyala_S PRIV PRIV [id number] [facility] 2023-05-29 00:00:00 2023-05-29 00:00:00 Outpatient [email or web address] diyala_S PRIV PRIV [id number] [facility]
--- NOTE | 2024-09-29 10:50 | EDPHYS ---
Physician Documentation [facility] Name: Yumiko Reardon Age: 49 yrs Sex: Female : 1975 Arrival Date: 09/29/2024 Time: 10:10 Bed 13 Private MD: ED Physician Conrad Hassan HPI: 09/29 12:06 This 49 yrs old Female presents to ER via Ambulatory with complaints of Wound rt Check - on back. 12:06 Patient had an epidermoid cyst removal by Dr. Moyer in the office this past week. rt Patient was instructed to have the wound repacked after showering, however, her was unable to do so secondary to him having a previous stroke. Denies other acute complaints at this time is only requesting wound to be repacked and redressed. Symptoms are mild in severity, no other aggravating or alleviating factors.. 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 - Infectious Disease History:: Denies. - Social history:: Smoking status: Patient reports the use of cigarette tobacco products. - Family history:: not pertinent. ROS: 12:06 Constitutional: Negative for fever, chills, and weight loss, Cardiovascular: Negative rt for chest pain, palpitations, and edema, Respiratory: Negative for shortness of breath, cough, wheezing, and pleuritic chest pain, Abdomen/GI: Negative for abdominal pain, nausea, vomiting, diarrhea, and constipation, 12:06 Skin: Positive for Wound, negative for drainage, Exam: 12:06 Constitutional: This is a well developed, well nourished patient who is awake, alert, rt and in no acute distress. Head/Face: Normocephalic, atraumatic. Chest/axilla: Normal chest wall appearance and motion. Nontender with no deformity. No lesions are appreciated. Cardiovascular: Regular rate and rhythm with a normal S1 and S2. No gallops, murmurs, or rubs. Normal PMI, no JVD. No pulse deficits. Respiratory: Lungs have equal breath sounds bilaterally, clear to auscultation and percussion. No rales, rhonchi or wheezes noted. No increased work of breathing, no retractions or nasal flaring. 12:06 Back: There is about a 4 cm wound to the back, no purulence, no surrounding erythema., Vital Signs: 10:36 BP 133 / 80; Pulse 56; Resp 17; Temp 98.4; Pulse Ox 100% ; Weight 68.04 kg; Height 4 jl7 ft. 11 in. ; Pain 5/10; 11:15 BP 130 / 78; Pulse 58; Resp 18; Temp 98; Pulse Ox 100% on R/A; kj2 10:36 Body Mass Index 30.30 (68.04 kg, 149.86 cm) jl7 10:36 Pain Scale: Adult jl7 MDM: 10:27 Medical Screening Exam initiated rt 12:06 Differential diagnosis: Wound. Data reviewed: vital signs, nurses notes. ED course: rt Wound appears appropriate for being less than 1 week postoperative, wound was repacked, redressed, patient instructed to follow-up as an outpatient.. 09/29 11:05 Order name: Dressing - Wound; Complete Time: 11:15 rt Administered Medications: No medications were administered Disposition Summary: 09/29/24 10:50 Discharge Ordered Notes: Location: Home rt Condition: Stable rt Diagnosis - Postoperative wound check rt Followup: rt - With: Cristian Moyer MD - When: 2 - 3 days - Reason: Discharge Instructions: - Discharge Summary Sheet rt - Wound Care, Adult rt Forms: - Medication Reconciliation Form rt - Antibiotic Education rt - Prescription Opioid Use rt - Patient Portal Instructions rt - Leadership Thank You Letter rt Signatures: Kenia Rainey RN RN jl7 Conrad Hassan MD MD rt
--- NOTE | 2024-09-29 10:50 | ER ---
Nurse's Notes [facility] Name: Yumiko Reardon Age: 49 yrs Sex: Female : 1975 Arrival Date: 09/29/2024 Time: 10:10 Bed 13 Private MD: Diagnosis: Postoperative wound check Presentation: 09/29 10:36 Chief complaint: Patient states: Abscess on left aspect of back drained on , jl7 unable to pack the wound at home. Coronavirus screen: At this time, the client does not indicate any symptoms associated with coronavirus-19. Ebola Screen: No symptoms or risks identified at this time. Initial Sepsis Screen: Does the patient meet any 2 criteria? No. Patient's initial sepsis screen is negative. Does the patient have a suspected source of infection? No. Patient's initial sepsis screen is negative. Risk Assessment: Do you want to hurt yourself or someone else? Patient reports no desire to harm self or others. Onset of symptoms was September 29, 2024. 10:36 Method Of Arrival: Ambulatory jl7 10:36 Acuity: ARLEY 4 jl7 Triage Assessment: 10:37 General: Appears in no apparent distress. uncomfortable, Behavior is calm, cooperative, jl7 appropriate for age. Pain: Complains of pain in back Pain currently is 5 out of 10 on a pain scale. 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 - Infectious Disease History:: Denies. - Social history:: Smoking status: Patient reports the use of cigarette tobacco products. - Family history:: not pertinent. Screenin:40 [facility] ED Fall Risk Assessment (Adult) History of falling in the last 3 months, kj2 including since admission No falls in past 3 months (0 pts) Confusion or Disorientation No (0 pts) Intoxicated or Sedated No (0 pts) Impaired Gait No (0 pts) Mobility Assist Device Used No (0 pt) Altered Elimination No (0 pt) Score/Fall Risk Level 0 - 2 = Low Risk Maintained a safe environment, Hourly rounding (assess needs \T\ fall precautionary measures) done. Abuse screen: Denies threats or abuse. Denies injuries from another. Nutritional screening: No deficits noted. Tuberculosis screening: No symptoms or risk factors identified. Assessment: 10:40 General: Appears in no apparent distress. Behavior is calm, cooperative. Pain: Denies kj2 pain. Neuro: Level of Consciousness is awake, alert, obeys commands, Oriented to person, place, time, situation. Cardiovascular: Patient's skin is warm and dry. Respiratory: Airway is patent Respiratory effort is even, unlabored. GI: No signs and/or symptoms were reported involving the gastrointestinal system. : No signs and/or symptoms were reported regarding the genitourinary system. Derm: Reports unable to do wound care herself on her back. 11:15 Reassessment: No changes from previously documented assessment. kj2 Vital Signs: 10:36 BP 133 / 80; Pulse 56; Resp 17; Temp 98.4; Pulse Ox 100% ; Weight 68.04 kg; Height 4 jl7 ft. 11 in. ; Pain 5/10; 11:15 BP 130 / 78; Pulse 58; Resp 18; Temp 98; Pulse Ox 100% on R/A; kj2 10:36 Body Mass Index 30.30 (68.04 kg, 149.86 cm) jl7 10:36 Pain Scale: Adult jl7 ED Course: 10:12 Patient arrived in ED. im 10:13 Conrad Hassan MD is Attending Physician. rt 10:37 Triage completed. jl7 10:37 Arm band placed on right wrist. jl7 10:40 Patient has correct armband on for positive identification. Bed in low position. Call kj2 light in reach. Side rails up X 1. Provided Education on: call light. 10:49 Cristian Moyer MD is Referral Physician. rt 10:51 Judy James, ABDELRAHMAN is Primary Nurse. kj2 10:53 No provider procedures requiring assistance completed. Patient did not have IV access kj2 during this emergency room visit. Administered Medications: No medications were administered Medication: 10:53 VIS not applicable for this client. kj2 Outcome: 10:50 Discharge ordered by MD. rt 11:16 Discharged to home ambulatory, kj2 11:16 Condition: stable 11:16 Discharge instructions given to patient, family, Instructed on discharge instructions, follow up and referral plans. 11:17 Patient left the ED. kj2 Signatures: Kenia Rainey RN RN jl7 Conrad Hassan MD MD rt Jena Rod Krystal, RN RN kj2
[2024-09-29 11:22] VITALS: O2SAT 100
[2024-09-29 11:24] VITALS: BP 130/78; TEMP 98
== END 2024-09-29 11:17 | disposition home or self-care (01) ==
LOC: ER 10:10
DX: Z48.01 Encounter for change or removal of surgical wound dressing (principal)
CPT/HCPCS: 99283

== ENCOUNTER 2024-10-01 21:37 | Emergency (ER) | payer OTHER ==
--- OUTSIDE RECORDS SUMMARY | 2024-10-01 21:40 | XMS REPORT | Continuity of Care Document ---
Author Name Unknown Address [address] [place] [address] [address] [id number] [facility] thconnect Address [address] [place] [address] [address] [place] [address] Care Team Providers Care Sfdc Solution Architect Name Role Phone [email or web address] Attending Clinician Unavaila ble [email or web address] Admitting Clinician Unavaila ble Encounters Start Date/Time End Date/Time Encounter Type Admission Type Attending Clinicians Care Facility Care Department Encounter ID Source 2023-05-30 00:00:00 2023-05-30 00:00:00 Outpatient [email or web address] [email or web address] PRIV PRIV [id number] [facility] 2023-05-29 00:00:00 2023-05-29 00:00:00 Outpatient [email or web address] [email or web address]_S PRIV PRIV [id number] [facility]
--- NOTE | 2024-10-01 22:24 | ER ---
Nurse's Notes [facility] Name: Yumiko Reardon Age: 49 yrs Sex: Female : 1975 Arrival Date: 10/01/2024 Time: 21:37 Bed Waiting Private MD: Diagnosis: Encounter for change or removal of surgical wound dressing Presentation: 10/01 22:18 Chief complaint: Patient states: wound has an odor and she is unable to change it. kj2 Coronavirus screen: Client denies travel out of the [place] in the last 14 days. Ebola Screen: No symptoms or risks identified at this time. Initial Sepsis Screen: Does the patient meet any 2 criteria? No. Patient's initial sepsis screen is negative. Does the patient have a suspected source of infection? No. Patient's initial sepsis screen is negative. Risk Assessment: Do you want to hurt yourself or someone else? Patient reports no desire to harm self or others. Onset of symptoms was October 01, 2024. 22:18 Method Of Arrival: Ambulatory kj2 22:18 Acuity: ARLEY 3 kj2 Triage Assessment: 22:20 General: Appears in no apparent distress. Behavior is calm, cooperative. Pain: Denies kj2 pain. Neuro: Level of Consciousness is awake, alert, Oriented to person, place, time, situation. Cardiovascular: Patient's skin is warm and dry. Respiratory: Airway is patent Respiratory effort is even, unlabored. GI: No signs and/or symptoms were reported involving the gastrointestinal system. : No signs and/or symptoms were reported regarding the genitourinary system. 22:21 Derm: Wound noted right upper back, small open wound. 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 - Infectious Disease History:: Denies. - Social history:: Smoking status: . Screenin:22 [facility] ED Fall Risk Assessment (Adult) History of falling in the last 3 months, kj2 including since admission No falls in past 3 months (0 pts) Confusion or Disorientation No (0 pts) Intoxicated or Sedated No (0 pts) Impaired Gait No (0 pts) Mobility Assist Device Used No (0 pt) Altered Elimination No (0 pt) Score/Fall Risk Level 0 - 2 = Low Risk Maintained a safe environment, Hourly rounding (assess needs \T\ fall precautionary measures) done. Abuse screen: Denies threats or abuse. Denies injuries from another. Nutritional screening: No deficits noted. Tuberculosis screening: No symptoms or risk factors identified. Assessment: 22:22 General: see triage assessment. kj2 Vital Signs: 22:18 BP 135 / 82; Pulse 55; Resp 18; Temp 98.1; Pulse Ox 100% ; Weight 68.04 kg; Height 4 kj2 ft. 11 in. ; 22:18 Body Mass Index 30.30 (68.04 kg, 149.86 cm) kj2 ED Course: 21:41 Patient arrived in ED. mr 21:41 Christine Fischer [facility]C [facility] kb 21:41 Bello Sarabia MD is Attending Physician. kb 22:20 Triage completed. kj2 22:23 Patient has correct armband on for positive identification. Provided Education on: kj2 wound care. Provided Education on: fall prevention. 22:24 No provider procedures requiring assistance completed. Patient did not have IV access kj2 during this emergency room visit. 22:25 Arm band placed on Patient placed in an exam room. kj2 22:32 Judy James, RN is Primary Nurse. kj2 Administered Medications: No medications were administered Medication: 22:23 VIS not applicable for this client. kj2 Outcome: 22:23 Discharge ordered by . kb 22:24 Condition: stable kj2 22:25 Discharged to home ambulatory, kj2 22:25 Discharge instructions given to patient, 22:32 Patient left the ED. kj2 Signatures: Christine Fischer FNP-C FNP-Yumiko Liriano, Reg Reg Judy James, RN RN kj2
--- NOTE | 2024-10-01 22:24 | EDPHYS ---
Physician Documentation [facility] Name: Yumiko Reardon Age: 49 yrs Sex: Female : 1975 Arrival Date: 10/01/2024 Time: 21:37 Bed Waiting Private MD: ED Physician Belol Sarabia HPI: 10/01 22:09 This 49 yrs old Female presents to ER via Unassigned with complaints of Wound kb Check. 22:09 Pt is a 49 year old female who presents for wound care. States she had surgery one week kb ago and is supposed to change the dressing every 48 hours. States she is supposed to have a wet to dry packing placed. States she was supposed to have home health come to do it, but they haven't contacted her yet. . 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 - Infectious Disease History:: Denies. - Social history:: Smoking status: . ROS: 22:09 Constitutional: As per HPI kb Exam: 22:09 Constitutional: This is a well developed, well nourished patient who is awake, alert, kb and in no acute distress. Head/Face: Normocephalic, atraumatic. ENT: Moist Mucous membranes Cardiovascular: Regular rate Respiratory: Respirations even and unlabored. No increased work of breathing. Talking in full sentences MS/ Extremity: Pulses equal, no cyanosis. Neurovascular intact. Full, normal range of motion. Neuro: Awake and alert, GCS 15, oriented to person, place, time, and situation. 22:09 Skin: Wound recheck: open surgical wound to left mid back, Vital Signs: 22:18 BP 135 / 82; Pulse 55; Resp 18; Temp 98.1; Pulse Ox 100% ; Weight 68.04 kg; Height 4 kj2 ft. 11 in. ; 22:18 Body Mass Index 30.30 (68.04 kg, 149.86 cm) kj2 MDM: 21:41 Medical Screening Exam initiated kb 22:13 Differential diagnosis: wound care, infection. Data reviewed: vital signs, nurses kb notes. Historians other than the Patient: Spouse/Significant Other: spouse. Counseling: I had a detailed discussion with the patient and/or guardian regarding the historical points, exam findings, and any diagnostic results supporting the discharge/admit diagnosis, the need for outpatient follow up, a general surgeon, to return to the emergency department if symptoms worsen or persist or if there are any questions or concerns that arise at home. 22:23 ED course: wet to dry dressing applied by me. . kb Administered Medications: No medications were administered Disposition Summary: 10/01/24 22:23 Discharge Ordered Notes: Location: Home kb Condition: Stable kb Diagnosis - Encounter for change or removal of surgical wound dressing kb Followup: kb - With: Emergency Department - When: As needed - Reason: Worsening of condition Followup: kb - With: Private Physician - When: 2 - 3 days - Reason: Recheck today's complaints, Continuance of care, Re-evaluation by your physician Discharge Instructions: - Discharge Summary Sheet kb - How to Change Your Wound Dressing, [id number] kb Forms: - Medication Reconciliation Form kb - Antibiotic Education kb - Prescription Opioid Use kb - Patient Portal Instructions kb - Leadership Thank You Letter kb Addendum: 10/02/2024 22:39 Co-signature as Attending Physician, Bello Sarabia MD I agree with the assessment s p4 and plan of care. I reviewed the patient's care provided by the Advanced Practice Provider and agree with the diagnosis and treatment plan. Signatures: Christine Fischer, VICK-C VICK-Bello Rankin MD MD sp4 Judy James, RN RN kj2
[2024-10-01 22:54] VITALS: BP 135/82; TEMP 98.1; O2SAT 100
== END 2024-10-01 22:32 | disposition home or self-care (01) ==
LOC: ER 21:37
DX: Z48.01 Encounter for change or removal of surgical wound dressing (principal)